=== PATIENT | male | born 1930 | race Caucasian/White ===

== ENCOUNTER 2018-05-15 19:30 | Outpatient (CLI) | payer MEDICARE | END 2018-05-15 19:31 | disposition home or self-care (01) | LOC: SLEEPLAB 19:30 | PROVIDERS: ATTEND Internal Medicine Sleep Medicine | DX: G47.33 Obstructive sleep apnea (adult) (pediatric) (principal) | CPT/HCPCS: 95811 ==

== ENCOUNTER 2019-05-15 04:10 | Emergency (ER) | payer MEDICARE ==
[2019-05-15] MEDS ORDERED: Ketorolac Tromethamine 30 MG/ML VIAL ONE (05:27)
--- NOTE | 2019-05-15 07:31 | RAD ---
Exam:2 views left forearm HISTORY: Pain. Trauma. COMPARISON: None FINDINGS: Impacted distal radius fracture. No additional fractures are appreciated. IMPRESSION: Distal radius fracture.
--- NOTE | 2019-05-15 07:33 | RAD ---
Exam:3 views left wrist HISTORY: Fall. Pain. COMPARISON: None FINDINGS: Intercarpal and radiocarpal joint spaces are preserved. Impacted distal radius fracture. As sociated soft tissue swelling. IMPRESSION: Distal radius fracture. Results of study discussed with Dr. Laguna 05/15/2019 at 7:30 AM Code CR
--- NOTE | 2019-05-15 07:33 | RAD ---
1 VIEW PELVIS: HISTORY: Fall. Pain. Trauma. FINDINGS: Limited evaluation of the sacrum due to bowel gas and fecal material. Intact bony pelvis. Contour of both femoral heads are maintained. Symmetric hip joint spaces. Bilateral obturator rings a re intact. Extensive atherosclerosis. Incompletely evaluated lumbar fusion hardware. IMPRESSION: No evidence of posttraumatic change. Transcribed Date/Time: 05/15/2019 7:36 AM
--- NOTE | 2019-05-15 07:35 | RAD ---
Exam: LUMBAR SPINE 3 VIEWS: HISTORY: Trauma. Fall. Pain. FINDINGS: 5 lumbar type vertebra. Bilateral transpedicular screws at L3, L4 and L5 without perihardware lucency. L4-L5 and L3-L4 disc prosthesis. Laminectomy defects from L3 through L5. Diffuse bone demineralization. No evidence of a vertebral body fracture. Extensive atherosclerosis of the aorta. Moderate to severe degenerative changes lumbosacral junction. Nonspecific calcification projecting over the left hemiabdomen.. IMPRESSION: No definite fracture. Transcribed Date/Time: 05/15/2019 7:37 AM
== END 2019-05-15 05:46 | disposition home or self-care (01) ==
LOC: ERS 04:10
DX: R11.2 Nausea with vomiting, unspecified (principal)
CPT/HCPCS: 72100; 72170; 96372; J1885

== ENCOUNTER 2019-05-16 12:37 | Observation (INO) | payer MEDICARE ==
[2019-05-16] MEDS ORDERED: Fentanyl 100 MCG/2 ML VIAL ONE ×2 (13:45→14:40)
--- NOTE | 2019-05-16 14:30 | CT ---
CT ABDOMEN AND PELVIS WITHOUT CONTRAST: HISTORY: Low back pain. FINDINGS: Comparison is made with the exam of 10/19/2015. Absence of oral and IV contrast reduces the sensitivity of the exam, particularly for evaluation of s olid organs involved. There are mild dependent changes in the lung bases. No free air or free fluid is noted in the abdome n or pelvis. No calcified gallstones are seen. Hyperdense cysts in the left kidney are again noted. No calculi are seen in the kidneys, ureters, or the urinary bladder. No hydroureteral nephrosis is seen on either side. The small bowel loops are not abnormally dilated. There are vascular calcific ations without evidence of aneurysmal dilatation of the abdominal aorta. There is colonic diverticul osis. There are postop changes of posterior spinal fusion with bilateral pedicle screws at L3, L4, a nd L5 levels in good position and alignment. The metallic hardware is intact. No acute fracture or subluxation is seen in the spine. Calcifications in the right adrenal gland and mild nodularity of t he left adrenal gland are stable. IMPRESSION: No significant abnormalities are seen within the constraints of a nonenhanced scan since 10/19/2015. POS: TPC
[2019-05-16 15:01] LABS: #Eosinphils 0.3 thou/uL (0.0-0.7); #Lymphocytes 1.2 thou/uL (1.20-3.40); #Monocytes 0.8 thou/uL (0.11-0.59); #Neutrophils 6.8 thou/uL (1.40-6.50); %Eosinophils 2.8 % (0.0-10.0); %Lymphocytes 13.5 % (21.0-51.0); %Monocytes 8.7 % (0.0-10.0); %Neutrophils 74.9 % (42.0-75.0); Hemoglobin 13.7 g/dL (14.0-18.0); Mean Corpuscular HGB CONC 34.1 g/dL (32.0-36.0); Mean Corpuscular Hemoglobin 33.4 pg (27.0-31.0); Mean Corpuscular Volume 97.9 fL (78.0-98.0); RBC Distribution Width 11.9 % (11.5-14.5); Red Blood Cell (RBC) Count 4.08 mill/uL (4.70-6.10)
[2019-05-16 15:07] LABS: Mean Platelet Volume 9.4 fL (7.4-10.4); Platelet Count 114 thou/uL (130-400)
[2019-05-16 15:19] LABS: Anion Gap 12 mmol/L (10-20); BUN (Urea Nitrogen) 23 mg/dL (8.4-25.7); Calc. Creatinine Clearance 0 mL/min (70-130); Calcium 8.6 mg/dL (7.8-10.44); Carbon Dioxide 22 mmol/L (23-31); Chloride 105 mmol/L (98-107); Estimated GFR-MDRD 79; Glucose 104 mg/dL (83-110); Platelet Morphology Comment Appears Decreased; Potassium 4.2 mmol/L (3.5-5.1); RBC Morphology Normal; Sodium 135 mmol/L (136-145)
[2019-05-16 16:51] LABS: Bilirubin Negative (Negative); Blood, Urine Negative (Negative); Clarity Clear (Clear); Glucose, Urine (Dipstick) Normal (Negative); Leukocyte Negative Leu/uL (Negative); Nitrite Negative (Negative); Protein, Urine (Dipstick) 10 mg/dL (Neg-Trace); Urobilinogen 3 mg/dL (Less than 2)
--- NOTE | 2019-05-16 21:05 | HP ---
PRIMARY CARE PHYSICIAN: Esvin Johnson MD CHIEF COMPLAINT: Back pain. HISTORY OF PRESENT ILLNESS: This is an 88-year-old white male who 2 days ago fell while he was trying to help his , who was starting to fall with her walker. He fell onto his buttocks and his left extended hand. The patient was seen in the emergency room at that time, was diagnosed with a nondisplaced left radial fracture, put in a splint, and that has not been causing any problems since. However, he has had increasing pain in his lower back. He was seen for this and was given muscle relaxants. These actually did not help the pain, but seemed to make it worse and made it difficult for him to sleep and he is now having trouble ambulating at all. He was able to carefully ambulate before that. He was seen again in the emergency room here, was unable to get up or walk and this was not safe to send home. They did do a CT scan of his abdomen and pelvis and his L-spine. There are no acute injuries, so we are putting him in observation so that we can go ahead and get him placed in rehab. PAST MEDICAL HISTORY: 1. Coronary artery disease. 2. Hypertension. 3. Hyperlipidemia. 4. Degenerative disease of the spine. 5. Parkinson disease. PAST SURGICAL HISTORY: 1. Cardiac stents x5. 2. Fusion of his L-spine. 3. Multiple skin cancer removals. SOCIAL HISTORY: The patient is , lives with his . He denies history of tobacco use. He rarely drinks any alcohol. No illicit drugs. He reports that he is a full code. His would be his medical decision maker if he is incapacitated, her name is Manuela Joseph. FAMILY HISTORY: Multiple uncles with Parkinson's. His dad had coronary artery disease and of an acute myocardial infarction. Mother in childbirth. ALLERGIES: 1. IODINE. 2. EPINEPHRINE. 3. HYDROCODONE. 4. PROPOXYPHENE. 5. TETANUS VACCINATION. 6. TRAMADOL. CURRENT MEDICATIONS: 1. Metoprolol 50 mg once a day. 2. Amlodipine 2.5 mg twice a day. 3. Lisinopril 40 mg daily. 4. Tamsulosin 0.4 mg daily at bedtime. 5. Finasteride 5 mg daily. 6. Coenzyme Q10 of 100 mg daily. 7. Alendronate 70 mg once a week. 8. Sinemet 25/100 mg 1-1/2 tablets three times a day. 9. Primidone 50 mg twice a day. 10. Aspirin 325 mg daily. 11. Simvastatin 40 mg daily. REVIEW OF SYSTEMS: CONSTITUTIONAL: No fever. No chills. EYES: No double vision or blurred vision. ENT: No congestion, drainage, or sore throat. CARDIOVASCULAR: No chest pain. No palpitations or racing heart. PULMONARY: No coughing, wheezing, or shortness of breath. GASTROINTESTINAL: No abdominal pain. No nausea or vomiting. No diarrhea or constipation. No fecal or urinary incontinence, or retention. GENITOURINARY: No dysuria or hematuria. MUSCULOSKELETAL: See HPI. SKIN: No rashes or lesions noted. NEUROLOGIC: The patient has intact feeling and he feels like he has intact strength into his legs. It just causes severe pain when he tries to get up. No neurologic symptoms that he has noticed. PSYCHIATRIC: He has not noticed any confusion or hallucinations, but did have some jitteriness and difficulty sleeping after taking the muscle relaxant, which is similar to what happened when he takes hydrocodone or tramadol. PHYSICAL EXAMINATION: VITAL SIGNS: Blood pressure 151/66, pulse 69, respirations 16, temperature 98.0, O2 saturation 100% on 2 L oxygen. GENERAL: This is a well-developed obese white male, in no acute distress when he is sitting still in the bed. HEENT: Pupils are equal, round, and reactive to light. Oropharynx clear without lesions, erythema, or exudate. NECK: Supple. No lymphadenopathy. No thyroid nodules or enlargement. HEART: Regular rate and rhythm. He does have a slight systolic murmur loudest at the left sternal border. No other murmurs or rubs. LUNGS: Clear to auscultation bilaterally. No wheezes, crackles, or rhonchi. ABDOMEN: Soft, nontender to palpation. Normoactive bowel sounds. No hepatosplenomegaly or other masses. EXTREMITIES: No clubbing, cyanosis, or edema. SKIN: No rashes or lesions noted. NEUROLOGIC: The patient has intact sensation throughout bilateral lower extremities. His reflexes are maintained and equal. He has good movement of all muscle groups in the toes, feet, ankles, and again moves well at the knees and at the hips. Flexing his hips does cause significant pain in his low back though. The remainder of his neurologic exam was normal. PSYCHIATRIC: Alert and oriented x3. Normal mood and affect. LABORATORY DATA: CBC showed hemoglobin of 13.7, hematocrit 40.0, and platelet count is a little low at 114. The rest was normal. Basic metabolic panel showed a sodium of 135 and a carbon dioxide of 22. Urinalysis was negative for evidence of infection. CT scan of the abdomen and pelvis including the bony structures, I did review along with the radiologist's report. He does show posterior spinal fusion with bilateral pedicle screws of the L3, L4, and L5 levels in good position and alignment with metallic hardware intact. No acute fractures or subluxation seen in the spine. No evidence of trauma. The remainder of the CT was negative for abnormalities. ASSESSMENT: 1. Severe low back pain from strain after a fall. The patient does not have any evidence of neurologic impingement. However, this is debilitating him where he cannot move and perform his activities of daily living. Currently, he will need physical therapy and placement in rehabilitation. Pain control will be an issue due to his allergies. It looks like in the past, he has been given Tylenol with Codeine while in the hospital. He does not remember ever having a reaction to this or we will give him that along with ibuprofen as needed for pain. We will hold off on muscle relaxers due to his bad reaction at home and we will have Physical Therapy start mobilizing him here in the hospital. 2. Hypertension. Resume home blood pressure medications. 3. Coronary artery disease. We will resume aspirin and statin. 4. Parkinson disease. Resume his home medications. 5. Gastrointestinal prophylaxis. Put the patient on Protonix while he is on the ibuprofen. 6. Deep venous thrombosis prophylaxis. We will put the patient on subcutaneous Lovenox and SCDs while in bed. 7. Code status: The patient is a full code. Should he be incapacitated, his would be his medical decision maker. Job ID: [id number]
[2019-05-16] MEDS ORDERED: Acetaminophen 650 MG Suppository PR PRN (23:03)
[2019-05-16] MEDS ORDERED: Acetaminophen 325 MG TAB PO PRN (23:03)
[2019-05-16] MEDS ORDERED: Senokot S 8.6-50 MG TAB PO PRN (23:03)
[2019-05-16] MEDS ORDERED: Guaifenesin DM 100-10/5 ML UDCUP PO PRN (23:03)
[2019-05-16] MEDS ORDERED: Ibuprofen 600 MG TAB PO PRN (23:03)
[2019-05-16] MEDS ORDERED: Ondansetron PF 4 MG/2 ML Vial IVP PRN (23:03)
[2019-05-16] MEDS ORDERED: Ondansetron ODT 4 MG TAB PO PRN (23:03)
[2019-05-16] MEDS ORDERED: Tamsulosin HCl 0.4 MG CAP PO SCH (23:15)
[2019-05-16] MEDS ORDERED: Aspirin 325 MG TAB PO SCH (23:15)
[2019-05-16] MEDS ORDERED: Primidone 50 MG TAB PO SCH (23:15)
[2019-05-16] MEDS ORDERED: Amlodipine 5 MG TAB PO SCH (23:15)
[2019-05-16 23:29] VITALS: BMI 28.6
[2019-05-17 05:29] LABS: #Eosinphils 0.3 thou/uL (0.0-0.7); #Monocytes 0.6 thou/uL (0.11-0.59); #Neutrophils 4.6 thou/uL (1.40-6.50); %Basophils 0.4 % (0.0-1.0); %Lymphocytes 15.7 % (21.0-51.0); %Monocytes 8.8 % (0.0-10.0); %Neutrophils 70.2 % (42.0-75.0); Hemoglobin 12.7 g/dL (14.0-18.0); Mean Corpuscular HGB CONC 34.5 g/dL (32.0-36.0); Mean Corpuscular Hemoglobin 33.4 pg (27.0-31.0); Mean Platelet Volume 8.1 fL (7.4-10.4); Platelet Count 100 thou/uL (130-400); RBC Distribution Width 11.6 % (11.5-14.5); Red Blood Cell (RBC) Count 3.79 mill/uL (4.70-6.10); White Blood Cell (WBC) Count 6.6 thou/uL (4.8-10.8)
[2019-05-17 05:51] LABS: Anion Gap 11 mmol/L (10-20); BUN (Urea Nitrogen) 17 mg/dL (8.4-25.7); Calc. Creatinine Clearance 101 mL/min (70-130); Carbon Dioxide 23 mmol/L (23-31); Chloride 105 mmol/L (98-107); Estimated GFR-MDRD Greater than 90; Glucose 107 mg/dL (83-110); Potassium 3.9 mmol/L (3.5-5.1); Sodium 135 mmol/L (136-145)
[2019-05-17] MEDS: Aspirin 325 MG TAB PO SCH ×2 (08:34→19:58)
[2019-05-17] MEDS: Amlodipine 5 MG TAB PO SCH ×2 (08:35→19:59)
[2019-05-17] MEDS: Finasteride 5 MG TAB PO SCH (08:35)
[2019-05-17] MEDS: Primidone 50 MG TAB PO SCH ×2 (08:35→19:58)
[2019-05-17] MEDS: Lisinopril 20 MG TAB PO SCH (08:36)
[2019-05-17] MEDS: Enoxaparin Sodium 40 MG/0.4 ML SYRINGE SC SCH (08:36)
[2019-05-17] MEDS: Ubidecarenone 50 MG CAP PO SCH (08:37)
[2019-05-17] MEDS: Lidocaine 5% Patch TD SCH (08:43)
[2019-05-17] MEDS ORDERED: clonazePAM 0.5 MG TAB PO PRN (12:48)
--- NOTE | 2019-05-17 12:55 | PDOC.HOSPP ---
- Subjective Encounter Date: 05/17/19 (f/u back pain) Encounter Time: 12:53 Subjective: Pt reports no pain at rest, but 10/10 pain with movement. He denies cp/sob/n/v/ abd pain. He states his last BM was 3 days ago and at home uses a suppository prn in addition to scheduled stool softener. - Objective Vital Signs & Weight: Vital Signs (12 hours) Temp Pulse Resp BP BP Pulse Ox 05/17/19 11:00 98.5 F 70 20 127/70 94 L 05/17/19 08:36 164/76 H 05/17/19 08:35 71 164/76 H 05/17/19 07:29 98.5 F 71 20 164/76 H 92 L 05/17/19 04:43 98.6 F 79 18 135/70 93 L Weight Weight 223 lb 4.8 oz I&O: 05/16/19 05/17/19 05/18/19 06:59 06:59 06:59 Output Total 350 Balance -350 Result Diagrams: 05/17/19 05:10 05/17/19 05:10 Hospitalist ROS - Medication Medications: Active Medications Generic Name Dose Route Start Last Admin Trade Name Freq PRN Reason Stop Dose Admin Amlodipine Besylate 2.5 mg 05/17/19 09:00 05/17/19 08:35 Norvasc PO 2.5 mg BID ZAYDA Administration Aspirin 325 mg 05/17/19 09:00 05/17/19 08:34 Aspirin PO 325 mg BID ZAYDA Administration Coenzyme Q10 100 mg 05/17/19 09:00 05/17/19 08:37 Coenzyme Q10 PO 100 mg DAILY ZAYDA Administration Enoxaparin Sodium 40 mg 05/17/19 09:00 05/17/19 08:36 Lovenox SC 40 mg 0900 ZAYDA Administration Finasteride 5 mg 05/17/19 09:00 05/17/19 08:35 Proscar PO 5 mg DAILY ZAYDA Administration Lidocaine 2 patch 05/17/19 09:00 05/17/19 08:43 Lidoderm 5% Patch TD 2 patch DAILY ZAYDA Administration Lisinopril 40 mg 05/17/19 09:00 05/17/19 08:36 Zestril PO 40 mg QAM ZAYDA Administration Metoprolol Succinate 50 mg 05/17/19 09:00 05/17/19 08:36 Toprol Xl PO 50 mg DAILY ZAYDA Administration Pantoprazole Sodium 40 mg 05/17/19 09:00 05/17/19 08:36 Protonix PO 40 mg DAILY ZAYDA Administration Primidone 50 mg 05/17/19 09:00 05/17/19 08:35 Mysoline PO 50 mg BID ZAYDA Administration - Exam General Appearance: NAD Heart: RRR, no murmur Respiratory: CTAB, no wheezes, no rales, no ronchi Gastrointestinal: soft, non-tender, non-distended, normal bowel sounds Extremities: no cyanosis, no clubbing, no edema Extremities - other findings: splint on left arm Psychiatric: normal affect Hosp A/P (1) Low back pain Code(s): M54.5 - LOW BACK PAIN Status: Acute Qualifiers: Chronicity: acute Sciatica presence: unspecified whether sciatica present (2) Radial fracture Code(s): S52.90XA - UNSP FRACTURE OF UNSP FOREARM, INIT FOR CLOS FX Status: Acute Qualifiers: Encounter type: subsequent encounter Fracture type: closed Laterality: left (3) Dyslipidemia Code(s): E78.5 - HYPERLIPIDEMIA, UNSPECIFIED Status: Acute (4) CAD (coronary artery disease) Code(s): I25.10 - ATHSCL HEART DISEASE OF [place] CORONARY ARTERY W/O ANG PCTRS Status: Chronic (5) HTN (hypertension) Code(s): I10 - ESSENTIAL (PRIMARY) HYPERTENSION Status: Chronic (6) Parkinsons disease Code(s): G20 - PARKINSON'S DISEASE Status: Chronic - Plan Reviewed and reconcilled home meds - added bid colace, prn lactulose and dulcolax CO Continue current home meds Tx pain, PT/OT evaluation and tx, plan for SNF dvt prophy - lovenox and scd's gi prophy - not indicated code status - Full, pt does not desire prolonged measures or prolonged life support, but requests initial tx and life support to see if the situation resolves. Family friend in the room during this discussion.
[2019-05-17] MEDS: Acetaminophen/Codeine 30-300mg Tablet PO PRN ×2 (14:45→19:58)
[2019-05-17] MEDS: Docusate 100 MG CAP PO SCH (19:58)
[2019-05-17] MEDS: Tamsulosin HCl 0.4 MG CAP PO SCH (19:58)
[2019-05-17] MEDS: Atorvastatin Calcium 20 MG TAB PO SCH (19:59)
[2019-05-17] MEDS: Lidocaine Patch Removal 1 EACH TOP SCH (19:59)
[2019-05-18 07:10] LABS: #Basophils 0.1 thou/uL (0.0-0.2); #Eosinphils 0.4 thou/uL (0.0-0.7); #Lymphocytes 0.7 thou/uL (1.20-3.40); #Monocytes 0.5 thou/uL (0.11-0.59); #Neutrophils 4.3 thou/uL (1.40-6.50); %Basophils 0.9 % (0.0-1.0); %Lymphocytes 11.5 % (21.0-51.0); %Monocytes 9.1 % (0.0-10.0); %Neutrophils 72.5 % (42.0-75.0); Mean Corpuscular HGB CONC 33.4 g/dL (32.0-36.0); Mean Corpuscular Hemoglobin 32.6 pg (27.0-31.0); Mean Corpuscular Volume 97.6 fL (78.0-98.0); Mean Platelet Volume 8.3 fL (7.4-10.4); Platelet Count 117 thou/uL (130-400); RBC Distribution Width 11.7 % (11.5-14.5); Red Blood Cell (RBC) Count 3.99 mill/uL (4.70-6.10); White Blood Cell (WBC) Count 5.9 thou/uL (4.8-10.8)
[2019-05-18 07:27] LABS: Anion Gap 13 mmol/L (10-20); BUN (Urea Nitrogen) 12 mg/dL (8.4-25.7); Calc. Creatinine Clearance 103 mL/min (70-130); Calcium 7.9 mg/dL (7.8-10.44); Carbon Dioxide 22 mmol/L (23-31); Chloride 101 mmol/L (98-107); Estimated GFR-MDRD Greater than 90; Glucose 111 mg/dL (83-110); Potassium 3.7 mmol/L (3.5-5.1); Sodium 132 mmol/L (136-145)
[2019-05-18] MEDS: Ubidecarenone 50 MG CAP PO SCH (08:01)
[2019-05-18] MEDS: Aspirin 325 MG TAB PO SCH ×2 (08:02→20:27)
[2019-05-18] MEDS: Amlodipine 5 MG TAB PO SCH ×2 (08:02→20:28)
[2019-05-18] MEDS: Primidone 50 MG TAB PO SCH ×2 (08:02→20:37)
[2019-05-18] MEDS: Docusate 100 MG CAP PO SCH ×2 (08:03→20:28)
[2019-05-18] MEDS: Lisinopril 20 MG TAB PO SCH (08:03)
[2019-05-18] MEDS: Finasteride 5 MG TAB PO SCH (08:03)
[2019-05-18] MEDS: Enoxaparin Sodium 40 MG/0.4 ML SYRINGE SC SCH (08:03)
[2019-05-18] MEDS: Lidocaine 5% Patch TD SCH (08:10)
[2019-05-18] MEDS ORDERED: Carbidopa/Levodopa CR 50-200 mg Tablet PO SCH (10:45)
[2019-05-18] MEDS: Acetaminophen/Codeine 30-300mg Tablet PO PRN ×2 (10:55→14:30)
--- NOTE | 2019-05-18 13:48 | PDOC.HOSPP ---
- Subjective Encounter Date: 05/18/19 (f/u back pain) Encounter Time: 13:46 Subjective: Pt c/o pain with movement or coughing in low back. Also c/o pain in right leg that is new today. Denies any cp/sob/n/v/abd pain. no BM recently - Objective Vital Signs & Weight: Vital Signs (12 hours) Temp Pulse Resp BP BP BP Pulse Ox 05/18/19 11:25 98.2 F 63 20 154/72 H 95 05/18/19 08:03 139/62 05/18/19 08:02 67 139/62 05/18/19 07:46 98.0 F 67 22 H 139/62 95 05/18/19 04:33 98.0 F 73 20 160/87 H 95 05/18/19 03:56 98 Weight Weight 223 lb 4.8 oz I&O: 05/17/19 05/18/19 05/19/19 06:59 06:59 06:59 Intake Total 720 Output Total 350 1020 Balance -350 -300 Result Diagrams: 05/18/19 06:55 05/18/19 06:55 Hospitalist ROS - Medication Medications: Active Medications Generic Name Dose Route Start Last Admin Trade Name Freq PRN Reason Stop Dose Admin Acetaminophen/Codeine Phosphate 1 tab 05/16/19 23:03 05/18/19 10:55 Tylenol #3 PO 1 tab Q4H PRN Administration Moderate Pain (4-6) Acetaminophen/Codeine Phosphate 2 tab 05/16/19 23:03 05/17/19 14:45 Tylenol #3 PO 2 tab Q4H PRN Administration Severe Pain (7-10) Amlodipine Besylate 2.5 mg 05/17/19 09:00 05/18/19 08:02 Norvasc PO 2.5 mg BID ZAYDA Administration Aspirin 325 mg 05/17/19 09:00 05/18/19 08:02 Aspirin PO 325 mg BID ZAYDA Administration Atorvastatin Calcium 20 mg 05/17/19 21:00 05/17/19 19:59 Lipitor PO 20 mg HS ZAYDA Administration Coenzyme Q10 100 mg 05/17/19 09:00 05/18/19 08:01 Coenzyme Q10 PO 100 mg DAILY ZAYDA Administration Docusate Sodium 100 mg 05/17/19 21:00 05/18/19 08:03 Colace PO 100 mg BID ZAYDA Administration Enoxaparin Sodium 40 mg 05/17/19 09:00 05/18/19 08:03 Lovenox SC 40 mg 0900 ZAYDA Administration Finasteride 5 mg 05/17/19 09:00 05/18/19 08:03 Proscar PO 5 mg DAILY ZAYDA Administration Lactulose 20 gm 05/17/19 12:49 05/18/19 08:01 Lactulose PO 20 gm DAILYPRN PRN Administration Constipation Lidocaine 2 patch 05/17/19 09:00 05/18/19 08:10 Lidoderm 5% Patch TD 2 patch DAILY ZAYDA Administration Lisinopril 40 mg 05/17/19 09:00 05/18/19 08:03 Zestril PO 40 mg QAM ZAYDA Administration Metoprolol Succinate 50 mg 05/17/19 09:00 05/18/19 08:02 Toprol Xl PO 50 mg DAILY ZAYDA Administration Miscellaneous Medication 2 each 05/17/19 21:00 05/17/19 19:59 Lidocaine Patch Removal TOP 2 each 2100 ZAYDA Administration Primidone 50 mg 05/17/19 09:00 05/18/19 08:02 Mysoline PO 50 mg BID ZAYDA Administration Tamsulosin HCl 0.4 mg 05/17/19 21:00 05/17/19 19:58 Flomax PO 0.4 mg HS ZAYDA Administration - Exam General Appearance: NAD Heart: RRR, no murmur Respiratory: CTAB, no wheezes, no rales, no ronchi Gastrointestinal: soft, non-tender, non-distended, normal bowel sounds Extremities: no cyanosis, no clubbing, no edema Psychiatric: normal affect Hosp A/P (1) Low back pain Code(s): M54.5 - LOW BACK PAIN Status: Acute Qualifiers: Chronicity: acute Sciatica presence: unspecified whether sciatica present (2) Radial fracture Code(s): S52.90XA - UNSP FRACTURE OF UNSP FOREARM, INIT FOR CLOS FX Status: Acute Qualifiers: Encounter type: subsequent encounter Fracture type: closed Laterality: left (3) Dyslipidemia Code(s): E78.5 - HYPERLIPIDEMIA, UNSPECIFIED Status: Acute (4) CAD (coronary artery disease) Code(s): I25.10 - ATHSCL HEART DISEASE OF [place] CORONARY ARTERY W/O ANG PCTRS Status: Chronic (5) HTN (hypertension) Code(s): I10 - ESSENTIAL (PRIMARY) HYPERTENSION Status: Chronic (6) Parkinsons disease Code(s): G20 - PARKINSON'S DISEASE Status: Chronic - Plan Reviewed and reconcilled home meds yesterday - continue current orders Pain - on lidocaine patch - tylenol 3 prn - add gabapentin HS starting with low dose - Has back hardware from prior surgery - do not think he is a candidate for MRI. No fracture on plain xray and CT abd/pelvis - continue PT/OT Plan for SNF Constipation - continue colace (home med), add miralax, and continue prn lactulose For distal radius fracture - can change to wrist immobilizer as this is a non- displaced fx. Reviewed with Ortho by phone and this does not require surgery. Needs outpatient f/u in [address] request for this - as this will be more comfortable for patient. Hyponatremia - hx of this in the past. Liberalize diet. Reviewed meds - do not see any that would cause this. Will continue to monitor. dvt prophy - lovenox and scd's gi prophy - not indicated code status - Full, pt does not desire prolonged measures or prolonged life support, but requests initial tx and life support to see if the situation resolves. Reviewed yesterday Reviewed plan of care with patient and family in the room. No questions or further needs at end of eval.
[2019-05-18] MEDS: Polyethylene Glycol 3350 17 GM Packet PO SCH (14:19)
[2019-05-18] MEDS: Carbidopa/Levodopa CR 50-200 mg Tablet PO SCH ×2 (14:19→20:32)
[2019-05-18] MEDS: Tamsulosin HCl 0.4 MG CAP PO SCH (20:27)
[2019-05-18] MEDS: Atorvastatin Calcium 20 MG TAB PO SCH (20:27)
[2019-05-18] MEDS: Gabapentin 100 MG CAP PO SCH (20:28)
[2019-05-18] MEDS: Lidocaine Patch Removal 1 EACH TOP SCH (20:35)
[2019-05-19 05:33] LABS: Anion Gap 10 mmol/L (10-20); BUN (Urea Nitrogen) 14 mg/dL (8.4-25.7); Calc. Creatinine Clearance 103 mL/min (70-130); Carbon Dioxide 25 mmol/L (23-31); Chloride 100 mmol/L (98-107); Estimated GFR-MDRD Greater than 90; Glucose 98 mg/dL (83-110); Potassium 3.9 mmol/L (3.5-5.1); Sodium 131 mmol/L (136-145)
[2019-05-19] MEDS: Lisinopril 20 MG TAB PO SCH (08:13)
[2019-05-19] MEDS: Enoxaparin Sodium 40 MG/0.4 ML SYRINGE SC SCH (08:13)
[2019-05-19] MEDS: Finasteride 5 MG TAB PO SCH (08:14)
[2019-05-19] MEDS: Acetaminophen/Codeine 30-300mg Tablet PO PRN ×2 (08:14→19:29)
[2019-05-19] MEDS: Carbidopa/Levodopa CR 50-200 mg Tablet PO SCH ×3 (08:14→19:28)
[2019-05-19] MEDS: Docusate 100 MG CAP PO SCH ×2 (08:14→19:28)
[2019-05-19] MEDS: Amlodipine 5 MG TAB PO SCH ×2 (08:14→19:27)
[2019-05-19] MEDS: Aspirin 325 MG TAB PO SCH ×2 (08:14→19:28)
[2019-05-19] MEDS: Primidone 50 MG TAB PO SCH ×2 (08:16→19:29)
[2019-05-19] MEDS: Ubidecarenone 50 MG CAP PO SCH (08:16)
[2019-05-19] MEDS: Lidocaine 5% Patch TD SCH (09:52)
--- NOTE | 2019-05-19 12:15 | PDOC.HOSPP ---
- Subjective Encounter Date: 05/19/19 (f/u back pain) Encounter Time: 12:13 Subjective: Pt reports improvement in pain control today. Was able to walk with PT yesterday/walker. Had a BM yesterday that was normal. Denies any n/v/abd pain or any new concerns. - Objective Vital Signs & Weight: Vital Signs (12 hours) Temp Pulse Resp BP BP BP Pulse Ox 05/19/19 11:25 98.6 F 66 20 137/74 94 L 05/19/19 08:14 63 05/19/19 08:13 137/77 05/19/19 07:51 98.6 F 63 20 137/77 98 05/19/19 03:56 98.4 F 66 18 152/77 H 94 L Weight Weight 223 lb 4.8 oz I&O: 05/18/19 05/19/19 05/20/19 06:59 06:59 06:59 Intake Total 720 1350 Output Total 1020 2210 Balance -300 -860 Result Diagrams: 05/18/19 06:55 05/19/19 04:47 Hospitalist ROS - Medication Medications: Active Medications Generic Name Dose Route Start Last Admin Trade Name Freq PRN Reason Stop Dose Admin Acetaminophen/Codeine Phosphate 1 tab 05/16/19 23:03 05/18/19 10:55 Tylenol #3 PO 1 tab Q4H PRN Administration Moderate Pain (4-6) Acetaminophen/Codeine Phosphate 2 tab 05/16/19 23:03 05/19/19 08:14 Tylenol #3 PO 2 tab Q4H PRN Administration Severe Pain (7-10) Amlodipine Besylate 2.5 mg 05/17/19 09:00 05/19/19 08:14 Norvasc PO 2.5 mg BID ZAYDA Administration Aspirin 325 mg 05/17/19 09:00 05/19/19 08:14 Aspirin PO 325 mg BID ZAYDA Administration Atorvastatin Calcium 20 mg 05/17/19 21:00 05/18/19 20:27 Lipitor PO 20 mg HS ZAYDA Administration Carbidopa/Levodopa 0.75 tab 05/18/19 15:00 05/19/19 08:14 Sinemet Cr 50/200 PO 0.75 tab TID ZAYDA Administration Coenzyme Q10 100 mg 05/17/19 09:00 05/19/19 08:16 Coenzyme Q10 PO 100 mg DAILY ZAYDA Administration Docusate Sodium 100 mg 05/17/19 21:00 05/19/19 08:14 Colace PO 100 mg BID ZAYDA Administration Enoxaparin Sodium 40 mg 05/17/19 09:00 05/19/19 08:13 Lovenox SC 40 mg 0900 ZAYDA Administration Finasteride 5 mg 05/17/19 09:00 05/19/19 08:14 Proscar PO 5 mg DAILY ZAYDA Administration Gabapentin 100 mg 05/18/19 21:00 05/18/19 20:28 Neurontin PO 100 mg HS ZAYDA Administration Lactulose 20 gm 05/17/19 12:49 05/18/19 08:01 Lactulose PO 20 gm DAILYPRN PRN Administration Constipation Lidocaine 2 patch 05/17/19 09:00 05/19/19 09:52 Lidoderm 5% Patch TD 2 patch DAILY ZAYDA Administration Lisinopril 40 mg 05/17/19 09:00 05/19/19 08:13 Zestril PO 40 mg QAM ZAYDA Administration Metoprolol Succinate 50 mg 05/17/19 09:00 05/19/19 08:13 Toprol Xl PO 50 mg DAILY ZAYDA Administration Miscellaneous Medication 2 each 05/17/19 21:00 05/18/19 20:35 Lidocaine Patch Removal TOP Not Given 2100 ZAYDA Polyethylene Glycol 17 gm 05/18/19 14:00 05/18/19 14:19 Miralax PO 17 gm 1400 ZAYDA Administration Primidone 50 mg 05/17/19 09:00 05/19/19 08:16 Mysoline PO 50 mg BID ZAYDA Administration Tamsulosin HCl 0.4 mg 05/17/19 21:00 05/18/19 20:27 Flomax PO 0.4 mg HS ZAYDA Administration - Exam General Appearance: NAD Heart: RRR, no murmur Respiratory: CTAB, no wheezes, no rales, no ronchi Gastrointestinal: soft, non-tender, non-distended, normal bowel sounds Extremities: no cyanosis, no clubbing, no edema Psychiatric: normal affect Hosp A/P (1) Low back pain Code(s): M54.5 - LOW BACK PAIN Status: Acute Qualifiers: Chronicity: acute Sciatica presence: unspecified whether sciatica present (2) Radial fracture Code(s): S52.90XA - UNSP FRACTURE OF UNSP FOREARM, INIT FOR CLOS FX Status: Acute Qualifiers: Encounter type: subsequent encounter Fracture type: closed Laterality: left (3) Dyslipidemia Code(s): E78.5 - HYPERLIPIDEMIA, UNSPECIFIED Status: Acute (4) CAD (coronary artery disease) Code(s): I25.10 - ATHSCL HEART DISEASE OF [place] CORONARY ARTERY W/O ANG PCTRS Status: Chronic (5) HTN (hypertension) Code(s): I10 - ESSENTIAL (PRIMARY) HYPERTENSION Status: Chronic (6) Parkinsons disease Code(s): G20 - PARKINSON'S DISEASE Status: Chronic - Plan Pain - on lidocaine patch - tylenol 3 prn - added gabapentin at low dose last night - will continue - Has back hardware from prior surgery - do not think he is a candidate for MRI. No fracture on plain xray and CT abd/pelvis - continue PT/OT Plan for SNF - pt is ready when approved Constipation - resolved - continue scheduled colace, miralax and prn meds For distal radius fracture - wrist immobilizer, no surgery indicated per discussion with Ortho. Needs f/u in 2 weeks with Ortho to monitor healing. Hyponatremia - sodium slightly worse, diet liberalize, continue to monitor. dvt prophy - lovenox and scd's gi prophy - not indicated code status - Full, pt does not desire prolonged measures or prolonged life support, but requests initial tx and life support to see if the situation resolves. Reviewed yesterday Reviewed plan of care with patient. No questions or further needs at end of eval.
[2019-05-19] MEDS: Polyethylene Glycol 3350 17 GM Packet PO SCH (15:11)
[2019-05-19] MEDS: Gabapentin 100 MG CAP PO SCH (19:28)
[2019-05-19] MEDS: Atorvastatin Calcium 20 MG TAB PO SCH (19:28)
[2019-05-19] MEDS: Tamsulosin HCl 0.4 MG CAP PO SCH (19:29)
[2019-05-19] MEDS: Lidocaine Patch Removal 1 EACH TOP SCH (19:30)
[2019-05-20 05:55] LABS: Anion Gap 11 mmol/L (10-20); BUN (Urea Nitrogen) 13 mg/dL (8.4-25.7); Calc. Creatinine Clearance 101 mL/min (70-130); Calcium 8.2 mg/dL (7.8-10.44); Carbon Dioxide 23 mmol/L (23-31); Chloride 99 mmol/L (98-107); Estimated GFR-MDRD Greater than 90; Glucose 94 mg/dL (83-110); Potassium 4.1 mmol/L (3.5-5.1); Sodium 129 mmol/L (136-145)
[2019-05-20] MEDS ORDERED: Alendronate Sodium 70 mg Tablet PO SCH (06:00)
[2019-05-20] MEDS: Aspirin 325 MG TAB PO SCH ×2 (08:04→20:15)
[2019-05-20] MEDS: Amlodipine 5 MG TAB PO SCH ×2 (08:04→20:17)
[2019-05-20] MEDS: Ubidecarenone 50 MG CAP PO SCH (08:04)
[2019-05-20] MEDS: Primidone 50 MG TAB PO SCH ×2 (08:04→20:14)
[2019-05-20] MEDS: Lisinopril 20 MG TAB PO SCH (08:05)
[2019-05-20] MEDS: Carbidopa/Levodopa CR 50-200 mg Tablet PO SCH ×3 (08:05→20:15)
[2019-05-20] MEDS: Finasteride 5 MG TAB PO SCH (08:05)
[2019-05-20] MEDS: Docusate 100 MG CAP PO SCH ×2 (08:05→20:16)
[2019-05-20] MEDS: Enoxaparin Sodium 40 MG/0.4 ML SYRINGE SC SCH (08:06)
[2019-05-20] MEDS: Lidocaine 5% Patch TD SCH (08:13)
--- NOTE | 2019-05-20 10:31 | PDOC.HOSPP ---
- Subjective Encounter Date: 05/20/19 Encounter Time: 11:00 Subjective: Patient reports continued hip pain, improving, not hurting at rest but does whenever moves. Getting up with PT ok. Awaiting rehab/SNF placement - Objective Vital Signs & Weight: Vital Signs (12 hours) Temp Pulse Resp BP BP Pulse Ox 05/20/19 08:05 165/79 H 05/20/19 08:04 68 165/79 H 05/20/19 07:33 97.9 F 68 20 165/79 H 93 L 05/20/19 04:37 98.4 F 61 15 154/72 H 94 L Weight Weight 223 lb 4.8 oz I&O: 05/19/19 05/20/19 05/21/19 06:59 06:59 06:59 Intake Total 1350 1940 Output Total 0 2019 Balance -860 -80 Result Diagrams: 05/18/19 06:55 05/20/19 04:57 Hospitalist ROS - Review of Systems Constitutional: denies: fever, chills Respiratory: denies: cough, shortness of breath Cardiovascular: denies: chest pain, palpitations Gastrointestinal: reports: constipation. denies: nausea, vomiting, abdominal pain, diarrhea Genitourinary: denies: dysuria, hematuria Musculoskeletal: reports: back pain, leg pain - Medication Medications: Active Medications Generic Name Dose Route Start Last Admin Trade Name Freq PRN Reason Stop Dose Admin Acetaminophen/Codeine Phosphate 1 tab 05/16/19 23:03 05/18/19 10:55 Tylenol #3 PO 1 tab Q4H PRN Administration Moderate Pain (4-6) Acetaminophen/Codeine Phosphate 2 tab 05/16/19 23:03 05/19/19 19:29 Tylenol #3 PO 2 tab Q4H PRN Administration Severe Pain (7-10) Amlodipine Besylate 2.5 mg 05/17/19 09:00 05/20/19 08:04 Norvasc PO 2.5 mg BID ZAYDA Administration Aspirin 325 mg 05/17/19 09:00 05/20/19 08:04 Aspirin PO 325 mg BID ZAYDA Administration Atorvastatin Calcium 20 mg 05/17/19 21:00 05/19/19 19:28 Lipitor PO 20 mg HS ZAYDA Administration Carbidopa/Levodopa 0.75 tab 05/18/19 15:00 05/20/19 08:05 Sinemet Cr 50/200 PO 0.75 tab TID ZAYDA Administration Coenzyme Q10 100 mg 05/17/19 09:00 05/20/19 08:04 Coenzyme Q10 PO 100 mg DAILY ZAYDA Administration Docusate Sodium 100 mg 05/17/19 21:00 05/20/19 08:05 Colace PO 100 mg BID ZAYDA Administration Enoxaparin Sodium 40 mg 05/17/19 09:00 05/20/19 08:06 Lovenox SC 40 mg 0900 ZAYDA Administration Finasteride 5 mg 05/17/19 09:00 05/20/19 08:05 Proscar PO 5 mg DAILY ZAYDA Administration Gabapentin 100 mg 05/18/19 21:00 05/19/19 19:28 Neurontin PO 100 mg HS ZAYDA Administration Lactulose 20 gm 05/17/19 12:49 05/20/19 06:05 Lactulose PO 20 gm DAILYPRN PRN Administration Constipation Lidocaine 2 patch 05/17/19 09:00 05/20/19 08:13 Lidoderm 5% Patch TD 2 patch DAILY ZAYDA Administration Lisinopril 40 mg 05/17/19 09:00 05/20/19 08:05 Zestril PO 40 mg QAM ZAYDA Administration Metoprolol Succinate 50 mg 05/17/19 09:00 05/20/19 08:05 Toprol Xl PO 50 mg DAILY ZAYDA Administration Miscellaneous Medication 2 each 05/17/19 21:00 05/19/19 19:30 Lidocaine Patch Removal TOP Not Given 2100 ZAYDA Polyethylene Glycol 17 gm 05/18/19 14:00 05/19/19 15:11 Miralax PO 17 gm 1400 ZAYDA Administration Primidone 50 mg 05/17/19 09:00 05/20/19 08:04 Mysoline PO 50 mg BID ZAYDA Administration Tamsulosin HCl 0.4 mg 05/17/19 21:00 05/19/19 19:29 Flomax PO 0.4 mg HS ZAYDA Administration - Exam General Appearance: NAD, awake alert Heart: RRR, no murmur, no gallops, no rubs Respiratory: CTAB, no wheezes, no rales, no ronchi Gastrointestinal: soft, non-tender, non-distended, normal bowel sounds Extremities: no cyanosis, no clubbing, no edema Psychiatric: normal affect, normal behavior, A&O x 3 Hosp A/P (1) Low back pain Code(s): M54.5 - LOW BACK PAIN Status: Acute Qualifiers: Chronicity: acute Sciatica presence: unspecified whether sciatica present (2) Radial fracture Code(s): S52.90XA - UNSP FRACTURE OF UNSP FOREARM, INIT FOR CLOS FX Status: Acute Qualifiers: Encounter type: subsequent encounter Fracture type: closed Laterality: left (3) Dyslipidemia Code(s): E78.5 - HYPERLIPIDEMIA, UNSPECIFIED Status: Acute (4) BPH (benign prostatic hyperplasia) Code(s): N40.0 - BENIGN PROSTATIC HYPERPLASIA WITHOUT LOWER URINRY TRACT SYMP Status: Chronic (5) CAD (coronary artery disease) Code(s): I25.10 - ATHSCL HEART DISEASE OF [place] CORONARY ARTERY W/O ANG PCTRS Status: Chronic (6) HTN (hypertension) Code(s): I10 - ESSENTIAL (PRIMARY) HYPERTENSION Status: Chronic (7) Parkinsons disease Code(s): G20 - PARKINSON'S DISEASE Status: Chronic (8) Hyponatremia Code(s): E87.1 - HYPO-OSMOLALITY AND HYPONATREMIA Status: Acute Plan: uncertain source - Plan Pain - on lidocaine patch - tylenol 3 prn - added gabapentin at low dose - Has back hardware from prior surgery - do not think he is a candidate for MRI. No fracture on plain xray and CT abd/pelvis - continue PT/OT Plan for SNF - pt is ready when approved Constipation - resolved - continue scheduled colace, miralax and prn meds For distal radius fracture - wrist immobilizer, no surgery indicated per discussion with Ortho. Needs f/u in 2 weeks with Ortho to monitor healing. Hyponatremia - sodium slightly worse, diet liberalized, BP up, will try restricting fluids. dvt prophy - lovenox and scd's gi prophy - not indicated code status - Full, pt does not desire prolonged measures or prolonged life support, but requests initial tx and life support to see if the situation resolves.
[2019-05-20] MEDS: Polyethylene Glycol 3350 17 GM Packet PO SCH (14:11)
[2019-05-20] MEDS ORDERED: Senokot 8.6 MG TAB PO PRN (14:57)
[2019-05-20] MEDS: Tamsulosin HCl 0.4 MG CAP PO SCH (20:15)
[2019-05-20] MEDS: Gabapentin 100 MG CAP PO SCH (20:15)
[2019-05-20] MEDS: Atorvastatin Calcium 20 MG TAB PO SCH (20:16)
[2019-05-20] MEDS: Lidocaine Patch Removal 1 EACH TOP SCH (20:33)
--- NOTE | 2019-05-21 08:41 | PDOC.HOSPP ---
- Subjective Encounter Date: 05/21/19 Encounter Time: 11:30 Subjective: Patient ambulating better with PT. Pain improving. Awaiting insurance authorization to go to SNF. - Objective Vital Signs & Weight: Vital Signs (12 hours) Temp Pulse Resp BP BP Pulse Ox 05/21/19 07:17 97.6 F 74 17 138/74 95 05/21/19 05:20 97.4 F L 67 18 121/68 98 05/21/19 00:49 127/75 05/21/19 00:08 98.3 F 68 18 166/80 H 93 L Weight Weight 223 lb 4.8 oz I&O: 05/20/19 05/21/19 05/22/19 06:59 06:59 06:59 Intake Total 1939 1500 Output Total 2019 1049 Balance -80 450 Result Diagrams: 05/18/19 06:55 05/20/19 04:57 Hospitalist ROS - Review of Systems Constitutional: denies: fever, chills Respiratory: denies: cough, shortness of breath Cardiovascular: denies: chest pain, palpitations, orthopnea Gastrointestinal: denies: nausea, vomiting, abdominal pain, diarrhea, constipation Genitourinary: denies: dysuria, hematuria Musculoskeletal: reports: back pain - Medication Medications: Active Medications Generic Name Dose Route Start Last Admin Trade Name Freq PRN Reason Stop Dose Admin Acetaminophen/Codeine Phosphate 1 tab 05/16/19 23:03 05/18/19 10:55 Tylenol #3 PO 1 tab Q4H PRN Administration Moderate Pain (4-6) Acetaminophen/Codeine Phosphate 2 tab 05/16/19 23:03 05/19/19 19:29 Tylenol #3 PO 2 tab Q4H PRN Administration Severe Pain (7-10) Amlodipine Besylate 2.5 mg 05/17/19 09:00 05/20/19 20:17 Norvasc PO 2.5 mg BID ZAYDA Administration Aspirin 325 mg 05/17/19 09:00 05/20/19 20:15 Aspirin PO 325 mg BID ZAYDA Administration Atorvastatin Calcium 20 mg 05/17/19 21:00 05/20/19 20:16 Lipitor PO 20 mg HS ZAYDA Administration Carbidopa/Levodopa 0.75 tab 05/18/19 15:00 05/20/19 20:15 Sinemet Cr 50/200 PO 0.75 tab TID ZAYDA Administration Clonazepam 0.5 mg 05/17/19 12:48 05/20/19 23:48 Klonopin PO 0.5 mg HS PRN Administration Insomnia Coenzyme Q10 100 mg 05/17/19 09:00 05/20/19 08:04 Coenzyme Q10 PO 100 mg DAILY ZAYDA Administration Docusate Sodium 100 mg 05/17/19 21:00 05/20/19 20:16 Colace PO 100 mg BID ZAYDA Administration Enoxaparin Sodium 40 mg 05/17/19 09:00 05/20/19 08:06 Lovenox SC 40 mg 0900 ZAYDA Administration Finasteride 5 mg 05/17/19 09:00 05/20/19 08:05 Proscar PO 5 mg DAILY ZAYDA Administration Gabapentin 100 mg 05/18/19 21:00 05/20/19 20:15 Neurontin PO 100 mg HS ZAYDA Administration Lactulose 20 gm 05/17/19 12:49 05/20/19 06:05 Lactulose PO 20 gm DAILYPRN PRN Administration Constipation Lidocaine 2 patch 05/17/19 09:00 05/20/19 08:13 Lidoderm 5% Patch TD 2 patch DAILY [facility] Administration Lisinopril 40 mg 05/17/19 09:00 05/20/19 08:05 Zestril PO 40 mg QAM [facility] Administration Metoprolol Succinate 50 mg 05/17/19 09:00 05/20/19 08:05 Toprol Xl PO 50 mg DAILY ZAYDA Administration Miscellaneous Medication 2 each 05/17/19 21:00 05/20/19 20:33 Lidocaine Patch Removal TOP Not Given 2100 [facility] Polyethylene Glycol 17 gm 05/18/19 14:00 05/20/19 14:11 Miralax PO Not Given 1400 [facility] Primidone 50 mg 05/17/19 09:00 05/20/19 20:14 Mysoline PO 50 mg BID ZAYDA Administration Tamsulosin HCl 0.4 mg 05/17/19 21:00 05/20/19 20:15 Flomax PO 0.4 mg HS ZAYDA Administration - Exam General Appearance: NAD ENT: moist mucosa Heart: RRR, no murmur, no gallops, no rubs Respiratory: CTAB, no wheezes, no rales, no ronchi Gastrointestinal: soft, non-tender, non-distended, normal bowel sounds Psychiatric: normal affect, normal behavior, A&O x 3 Hosp A/P (1) Low back pain Code(s): M54.5 - LOW BACK PAIN Status: Acute Qualifiers: Chronicity: acute Sciatica presence: unspecified whether sciatica present (2) Radial fracture Code(s): S52.90XA - UNSP FRACTURE OF UNSP FOREARM, INIT FOR CLOS FX Status: Acute Qualifiers: Encounter type: subsequent encounter Fracture type: closed Laterality: left (3) Dyslipidemia Code(s): E78.5 - HYPERLIPIDEMIA, UNSPECIFIED Status: Acute (4) BPH (benign prostatic hyperplasia) Code(s): N40.0 - BENIGN PROSTATIC HYPERPLASIA WITHOUT LOWER URINRY TRACT SYMP Status: Chronic (5) CAD (coronary artery disease) Code(s): I25.10 - ATHSCL HEART DISEASE OF [place] CORONARY ARTERY W/O ANG PCTRS Status: Chronic (6) HTN (hypertension) Code(s): I10 - ESSENTIAL (PRIMARY) HYPERTENSION Status: Chronic (7) Parkinsons disease Code(s): G20 - PARKINSON'S DISEASE Status: Chronic (8) Hyponatremia Code(s): E87.1 - HYPO-OSMOLALITY AND HYPONATREMIA Status: Acute - Plan Pain - on lidocaine patch - tylenol 3 prn - added gabapentin at low dose - Has back hardware from prior surgery - do not think he is a candidate for MRI. No fracture on plain xray and CT abd/pelvis - continue PT/OT Plan for SNF - pt is ready when approved Constipation - resolved - continue scheduled colace, miralax and prn meds For distal radius fracture - wrist immobilizer, no surgery indicated per discussion with Ortho. Needs f/u in 2 weeks with Ortho to monitor healing. Hyponatremia - sodium slightly worse, diet liberalized, BP up, will try restricting fluids. dvt prophy - lovenox and scd's gi prophy - not indicated code status - Full, pt does not desire prolonged measures or prolonged life support, but requests initial tx and life support to see if the situation resolves.
[2019-05-21] MEDS: Primidone 50 MG TAB PO SCH ×2 (08:49→20:32)
[2019-05-21] MEDS: Aspirin 325 MG TAB PO SCH ×2 (08:49→20:29)
[2019-05-21] MEDS: Ubidecarenone 50 MG CAP PO SCH (08:49)
[2019-05-21] MEDS: Lisinopril 20 MG TAB PO SCH (08:50)
[2019-05-21] MEDS: Docusate 100 MG CAP PO SCH ×2 (08:50→20:32)
[2019-05-21] MEDS: Amlodipine 5 MG TAB PO SCH ×2 (08:50→20:28)
[2019-05-21] MEDS: Carbidopa/Levodopa CR 50-200 mg Tablet PO SCH ×3 (08:51→20:29)
[2019-05-21] MEDS: Lidocaine 5% Patch TD SCH (08:51)
[2019-05-21] MEDS: Finasteride 5 MG TAB PO SCH (08:51)
[2019-05-21] MEDS: Enoxaparin Sodium 40 MG/0.4 ML SYRINGE SC SCH (08:51)
[2019-05-21] MEDS: Polyethylene Glycol 3350 17 GM Packet PO SCH (13:25)
[2019-05-21] MEDS: Lidocaine Patch Removal 1 EACH TOP SCH (20:28)
[2019-05-21] MEDS: Atorvastatin Calcium 20 MG TAB PO SCH (20:29)
[2019-05-21] MEDS: Melatonin 3 MG TAB PO PRN (20:32)
[2019-05-21] MEDS: Tamsulosin HCl 0.4 MG CAP PO SCH (20:32)
[2019-05-21] MEDS: Gabapentin 100 MG CAP PO SCH (20:32)
[2019-05-22 07:22] LABS: #Eosinphils 0.3 thou/uL (0.0-0.7); #Lymphocytes 1.1 thou/uL (1.20-3.40); #Monocytes 0.6 thou/uL (0.11-0.59); #Neutrophils 3.2 thou/uL (1.40-6.50); %Basophils 0.4 % (0.0-1.0); %Eosinophils 5.6 % (0.0-10.0); %Lymphocytes 21.5 % (21.0-51.0); %Monocytes 11.7 % (0.0-10.0); %Neutrophils 60.9 % (42.0-75.0); Hemoglobin 13.9 g/dL (14.0-18.0); Mean Corpuscular Hemoglobin 34.4 pg (27.0-31.0); Mean Corpuscular Volume 98.3 fL (78.0-98.0); Mean Platelet Volume 8.3 fL (7.4-10.4); Platelet Count 176 thou/uL (130-400); RBC Distribution Width 11.7 % (11.5-14.5); Red Blood Cell (RBC) Count 4.05 mill/uL (4.70-6.10); White Blood Cell (WBC) Count 5.2 thou/uL (4.8-10.8)
[2019-05-22 07:46] LABS: Anion Gap 13 mmol/L (10-20); BUN (Urea Nitrogen) 19 mg/dL (8.4-25.7); Calc. Creatinine Clearance 100 mL/min (70-130); Calcium 8.5 mg/dL (7.8-10.44); Carbon Dioxide 22 mmol/L (23-31); Chloride 99 mmol/L (98-107); Estimated GFR-MDRD Greater than 90; Glucose 92 mg/dL (83-110); Potassium 3.9 mmol/L (3.5-5.1); Sodium 130 mmol/L (136-145)
[2019-05-22] MEDS: Primidone 50 MG TAB PO SCH ×2 (08:18→20:35)
[2019-05-22] MEDS: Lisinopril 20 MG TAB PO SCH (08:18)
[2019-05-22] MEDS: Carbidopa/Levodopa CR 50-200 mg Tablet PO SCH ×3 (08:18→20:36)
[2019-05-22] MEDS: Ubidecarenone 50 MG CAP PO SCH (08:18)
[2019-05-22] MEDS: Aspirin 325 MG TAB PO SCH ×2 (08:18→20:35)
[2019-05-22] MEDS: Lidocaine 5% Patch TD SCH (08:19)
[2019-05-22] MEDS: Enoxaparin Sodium 40 MG/0.4 ML SYRINGE SC SCH (08:19)
[2019-05-22] MEDS: Amlodipine 5 MG TAB PO SCH ×2 (08:19→20:35)
[2019-05-22] MEDS: Finasteride 5 MG TAB PO SCH (08:19)
[2019-05-22] MEDS: Docusate 100 MG CAP PO SCH ×2 (08:19→20:35)
--- NOTE | 2019-05-22 11:51 | PDOC.HOSPP ---
- Subjective Encounter Date: 05/22/19 Encounter Time: 11:45 Subjective: f/u for acute low back pain, L wrist fx s/p fall. Awaiting SNF approval. Ambulated with PT today. No new complaints. - Objective Vital Signs & Weight: Vital Signs (12 hours) Temp Pulse Resp BP BP BP Pulse Ox 05/22/19 08:19 56 L 148/62 H 05/22/19 08:18 148/62 H 05/22/19 07:39 98.5 F 56 L 20 148/62 H 98 05/22/19 04:50 97.8 F 55 L 15 139/77 97 05/22/19 00:00 97.7 F 70 18 138/80 98 Weight Weight 223 lb 4.8 oz I&O: 05/21/19 05/22/19 05/23/19 06:59 06:59 06:59 Intake Total 1500 480 Output Total 1050 1300 Balance 450 -820 Result Diagrams: 05/22/19 04:55 05/22/19 04:55 Hospitalist ROS - Medication Medications: Active Medications Generic Name Dose Route Start Last Admin Trade Name Freq PRN Reason Stop Dose Admin Acetaminophen/Codeine Phosphate 1 tab 05/16/19 23:03 05/18/19 10:55 Tylenol #3 PO 1 tab Q4H PRN Administration Moderate Pain (4-6) Acetaminophen/Codeine Phosphate 2 tab 05/16/19 23:03 05/19/19 19:29 Tylenol #3 PO 2 tab Q4H PRN Administration Severe Pain (7-10) Amlodipine Besylate 2.5 mg 05/17/19 09:00 05/22/19 08:19 Norvasc PO 2.5 mg BID ZAYDA Administration Aspirin 325 mg 05/17/19 09:00 05/22/19 08:18 Aspirin PO 325 mg BID ZAYDA Administration Atorvastatin Calcium 20 mg 05/17/19 21:00 05/21/19 20:29 Lipitor PO 20 mg HS ZAYDA Administration Carbidopa/Levodopa 0.75 tab 05/18/19 15:00 05/22/19 08:18 Sinemet Cr 50/200 PO 0.75 tab TID ZAYDA Administration Clonazepam 0.5 mg 05/17/19 12:48 05/20/19 23:48 Klonopin PO 0.5 mg HS PRN Administration Insomnia Coenzyme Q10 100 mg 05/17/19 09:00 05/22/19 08:18 Coenzyme Q10 PO 100 mg DAILY ZAYDA Administration Docusate Sodium 100 mg 05/17/19 21:00 05/22/19 08:19 Colace PO 100 mg BID ZAYDA Administration Enoxaparin Sodium 40 mg 05/17/19 09:00 05/22/19 08:19 Lovenox SC 40 mg 0900 ZAYDA Administration Finasteride 5 mg 05/17/19 09:00 05/22/19 08:19 Proscar PO 5 mg DAILY ZAYDA Administration Gabapentin 100 mg 05/18/19 21:00 05/21/19 20:32 Neurontin PO 100 mg HS ZAYDA Administration Lactulose 20 gm 05/17/19 12:49 05/20/19 06:05 Lactulose PO 20 gm DAILYPRN PRN Administration Constipation Lidocaine 2 patch 05/17/19 09:00 05/22/19 08:19 Lidoderm 5% Patch TD 2 patch DAILY ZAYDA Administration Lisinopril 40 mg 05/17/19 09:00 05/22/19 08:18 Zestril PO 40 mg QAM ZAYDA Administration Melatonin 3 mg 05/21/19 19:32 05/21/19 20:32 Melatonin PO 3 mg HS PRN Administration Insomnia Metoprolol Succinate 50 mg 05/17/19 09:00 05/22/19 08:19 Toprol Xl PO 50 mg DAILY ZAYDA Administration Miscellaneous Medication 2 each 05/17/19 21:00 05/21/19 20:28 Lidocaine Patch Removal TOP 2 each 2100 ZAYDA Administration Polyethylene Glycol 17 gm 05/18/19 14:00 05/21/19 13:25 Miralax PO Not Given 1400 [facility] Primidone 50 mg 05/17/19 09:00 05/22/19 08:18 Mysoline PO 50 mg BID ZAYDA Administration Tamsulosin HCl 0.4 mg 05/17/19 21:00 05/21/19 20:32 Flomax PO 0.4 mg HS ZAYDA Administration - Exam General Appearance: NAD, awake alert Eye: PERRL, anicteric sclera ENT: normocephalic atraumatic, no oropharyngeal lesions Neck: supple, symmetric, no JVD, no thyromegaly Heart: RRR, no murmur, no gallops, no rubs, normal peripheral pulses Respiratory: CTAB, no wheezes, no rales, no ronchi, normal chest expansion Gastrointestinal: soft, non-tender, non-distended, normal bowel sounds, no palpable masses Extremities: no cyanosis, no clubbing, no edema Extremities - other findings: L wrist with splint in place Skin: normal turgor, no lesions Neurological: cranial nerve grossly intact, no new deficit Musculoskeletal: normal tone, generalized weakness Psychiatric: normal affect, normal behavior, A&O x 3 Hosp A/P (1) Hyponatremia Code(s): E87.1 - HYPO-OSMOLALITY AND HYPONATREMIA Status: Acute Plan: Mild, encourage regular diet (2) Low back pain Code(s): M54.5 - LOW BACK PAIN Status: Acute Qualifiers: Chronicity: acute Sciatica presence: unspecified whether sciatica present Plan: Pain control, Lidocaine patch, PT for mobilization (3) Radial fracture Code(s): S52.90XA - UNSP FRACTURE OF UNSP FOREARM, INIT FOR CLOS FX Status: Acute Qualifiers: Encounter type: subsequent encounter Fracture type: closed Laterality: left Plan: L wrist immobilizer, pain control, PT/OT (4) CAD (coronary artery disease) Code(s): I25.10 - ATHSCL HEART DISEASE OF [place] CORONARY ARTERY W/O ANG PCTRS Status: Chronic Plan: Chronic, stable (5) HTN (hypertension) Code(s): I10 - ESSENTIAL (PRIMARY) HYPERTENSION Status: Chronic Qualifiers: Hypertension type: essential hypertension Qualified Code(s): I10 - Essential (primary) hypertension Plan: Stable, continue home BP regimen - Plan PT/OT, social insurance adviser, out of bed/ambulate, DVT proph w/SCDs Stable currently Plan for SNF transfer when insurance approved PT/OT for mobilization Pain control Likely d/c in 24h
[2019-05-22] MEDS: Polyethylene Glycol 3350 17 GM Packet PO SCH (15:15)
[2019-05-22] MEDS: Tamsulosin HCl 0.4 MG CAP PO SCH (20:35)
[2019-05-22] MEDS: Melatonin 3 MG TAB PO PRN (20:35)
[2019-05-22] MEDS: Gabapentin 100 MG CAP PO SCH (20:36)
[2019-05-22] MEDS: Atorvastatin Calcium 20 MG TAB PO SCH (20:36)
[2019-05-22] MEDS: Lidocaine Patch Removal 1 EACH TOP SCH (20:37)
[2019-05-23] MEDS: Carbidopa/Levodopa CR 50-200 mg Tablet PO SCH (08:24)
[2019-05-23] MEDS: Finasteride 5 MG TAB PO SCH (08:25)
[2019-05-23] MEDS: Primidone 50 MG TAB PO SCH (08:25)
[2019-05-23] MEDS: Amlodipine 5 MG TAB PO SCH (08:25)
[2019-05-23] MEDS: Ubidecarenone 50 MG CAP PO SCH (08:25)
[2019-05-23] MEDS: Aspirin 325 MG TAB PO SCH (08:26)
[2019-05-23] MEDS: Lidocaine 5% Patch TD SCH (08:26)
[2019-05-23] MEDS: Docusate 100 MG CAP PO SCH (08:26)
[2019-05-23] MEDS: Enoxaparin Sodium 40 MG/0.4 ML SYRINGE SC SCH (08:26)
[2019-05-23] MEDS: Lisinopril 20 MG TAB PO SCH (08:26)
[2019-05-23 14:00] VITALS: BP 161/67; TEMP 98.2
--- NOTE | 2019-05-24 01:56 | DIS ---
DATE OF ADMISSION: 05/16/2019 DATE OF DISCHARGE: 05/23/2019 DISCHARGE DIAGNOSES: 1. Hyponatremia, mild. 2. Low back pain, improved. 3. Left distal radius fracture. 4. Coronary artery disease, chronic and stable. 5. Hypertension, chronic, stable. CONSULTATIONS: Dr. Estes with Orthopedic Surgery Service. PERTINENT LABORATORY AND X-RAY FINDINGS: Sodium ranged between 129 to 135. CBC showed a hemoglobin ranging between 12.[address] of the abdomen and pelvis dated 05/16/2019 showed no acute intraabdominal process. Two views of the left forearm show an impacted distal radius fracture. Lumbar spine radiographs dated 05/15/2019, showed no evidence of fracture or dislocation. [id number] degenerative changes noted. Pelvic radiographs dated 05/15/2019, showed no acute fracture. HOSPITAL COURSE: The patient was initially admitted after presenting status post mechanical fall sustaining a left radial fracture. The patient underwent evaluation by the Orthopedic surgery service and placed in a forearm/wrist splint. No specific acute surgical intervention was recommended. The patient was noted with severe back pain, undergoing plain radiographic imaging showing no evidence of acute fracture. The patient received general supportive management including lidocaine patch and oral and IV pain medication with overall improvement in symptoms during the hospital course. Due to patient's mobility issues and living situation, the patient was evaluated for potential inpatient rehabilitation/penitentiary facility placement. The patient progressed rapidly during his hospital course and was ambulating up to 500 feet using a platform walker with standby assistance. The patient was not deemed an appropriate candidate for penitentiary care with recommendations to return home with home health including physical therapy. The patient overall remained clinically stable during the hospital course and tolerated regular oral intake. Vital signs remained stable. I have examined the patient at the time of discharge and discussed followup instructions. The patient verbalized understanding and agreement, ready for discharge 05/23/2019. DISCHARGE MEDICATIONS: 1. Amlodipine 2.5 mg p.o. b.i.d. 2. Sinemet CR 25/100 mg 1.5 tablets p.o. t.i.d. 3. Klonopin 0.5 mg p.o. at bedtime p.r.n. 4. Vitamin B12 2500 mcg sublingually daily. 5. Docusate sodium 100 mg p.o. b.i.d. 6. Doxycycline 40 mg p.o. daily. 7. Lisinopril 40 mg p.o. q.a.m. 8. Metoprolol succinate 25 mg p.o. b.i.d. 9. Metrogel 0.1% gel one application topically daily. 10. Multivitamin 1 tablet p.o. daily. 11. Primidone 50 mg p.o. b.i.d. 12. Tamsulosin 0.4 mg p.o. at bedtime. 13. Coenzyme Q10 100 mg p.o. daily. 14. Tylenol No. 3, 300/30 mg 1-2 tablets p.o. q.4 to 6 hours p.r.n. pain. 15. Aspirin 325 mg p.o. b.i.d. 16. Lidocaine patch 2 patches applied daily, then removed p.r.n. FOLLOWUP: The patient may follow up with his primary care provider, Esvin Johnson within 7 days of discharge. The patient will follow up with Dr. Chuck Estes with [facility] Surgery [facility] and to call his office for appointment time and date. CONDITION ON DISCHARGE: Stable. ACTIVITY: Ad-torrey. DIET: Regular. SPECIAL INSTRUCTIONS: Home health with physical and occupational therapy. CODE STATUS: Full. DISPOSITION: To home 05/23/2019. Job ID: [id number]
== END 2019-05-23 14:03 ==
LOC: ERS 12:37 → T4-A 21:47
PROVIDERS: ADMIT Emergency Medicine; ATTEND Emergency Medicine
DX: S52.502A Unspecified fracture of the lower end of left radius, initial encounter for closed fracture (principal); E87.1 Hypo-osmolality and hyponatremia; M54.5 Low back pain; I25.10 Atherosclerotic heart disease of native coronary artery without angina pectoris; I10 Essential (primary) hypertension; W19.XXXA Unspecified fall, initial encounter; Z79.899 Other long term (current) drug therapy; Z79.82 Long term (current) use of aspirin; G20 Parkinson's disease; E78.5 Hyperlipidemia, unspecified; Z95.5 Presence of coronary angioplasty implant and graft; Z88.5 Allergy status to narcotic agent; Z88.7 Allergy status to serum and vaccine; Z88.8 Allergy status to other drugs, medicaments and biological substances; Z91.041 Radiographic dye allergy status
CPT/HCPCS: 74176; 80048 ×6; 81003; 85025 ×4; 96361; 96372 ×7; 96374; 96376; 97110; 97112; 97116 ×4; 97139 ×10; 97530 ×2; 97535; 99285; G0378 ×9; 36415; J1650; J3010

== ENCOUNTER 2019-10-02 15:43 | Inpatient (IN) | payer MEDICARE ==
[2019-10-02] MEDS ORDERED: Bacitracin 1 PK ONE (16:03)
[2019-10-02 16:13] LABS: #Eosinphils 0.1 thou/uL (0.0-0.7); #Lymphocytes 1.4 thou/uL (1.20-3.40); #Monocytes 0.6 thou/uL (0.11-0.59); #Neutrophils 3.8 thou/uL (1.40-6.50); %Basophils 0.1 % (0.0-1.0); %Eosinophils 2.1 % (0.0-10.0); %Lymphocytes 23.5 % (21.0-51.0); %Monocytes 10.7 % (0.0-10.0); %Neutrophils 63.6 % (42.0-75.0); Hemoglobin 14.8 g/dL (14.0-18.0); Mean Corpuscular HGB CONC 34.3 g/dL (32.0-36.0); Mean Corpuscular Hemoglobin 33.4 pg (27.0-31.0); Mean Corpuscular Volume 97.6 fL (78.0-98.0); Mean Platelet Volume 7.6 fL (7.4-10.4); Platelet Count 169 thou/uL (130-400); RBC Distribution Width 12.4 % (11.5-14.5); Red Blood Cell (RBC) Count 4.43 mill/uL (4.70-6.10)
[2019-10-02 16:19] LABS: INR-International Normal Ratio 0.9; PTT 30.5 sec (22.9-36.1); Prothrombin Time 12.2 sec (12.0-14.7)
--- NOTE | 2019-10-02 16:24 | RAD ---
AP PELVIS: 10/02/19 HISTORY: Left hip pain, fall. FINDINGS/IMPRESSION: There is an intertrochanteric fracture involving the left femur. POS: [facility]
--- NOTE | 2019-10-02 16:29 | RAD ---
SINGLE VIEW OF THE CHEST: 10/02/19 COMPARISON: 04/05/16. HISTORY: Chest pain and shortness of breath. FINDINGS: Single view of the chest shows a normal sized cardiomediastinal silhouette. There is no evidence of c onsolidation, mass, or pleural effusion. Degenerative changes are see in the spine. IMPRESSION: No evidence of acute cardiopulmonary disease. POS: [facility]
[2019-10-02 16:33] LABS: ALT (SGPT) Less than 7 U/L (8-55); AST (SGOT) 15 U/L (5-34); Albumin 3.9 g/dL (3.4-4.8); Alkaline Phosphatase 82 U/L (40-110); Anion Gap 11 mmol/L (10-20); BUN (Urea Nitrogen) 18 mg/dL (8.4-25.7); Bilirubin, Total 0.3 mg/dL (0.2-1.2); Calc. Creatinine Clearance 0 mL/min (70-130); Calcium 8.8 mg/dL (7.8-10.44); Carbon Dioxide 24 mmol/L (23-31); Chloride 96 mmol/L (98-107); Estimated GFR-MDRD 57; Globulin 2.3 g/dL (2.4-3.5); Glucose 101 mg/dL (83-110); Potassium 4.3 mmol/L (3.5-5.1); Protein, Total 6.2 g/dL (5.8-8.1); Sodium 127 mmol/L (136-145)
--- NOTE | 2019-10-02 16:34 | RAD ---
TWO VIEWS LEFT HIP: 10/02/19 COMPARISON: None. HISTORY: Fall with left hip pain. FINDINGS: Two views of the left hip shows a comminuted intertrochanteric left femur fracture. No dislocation of the femoral head is seen. No degenerative changes are seen in the left hip. Vascular calcifications are seen. Hardware is seen in the lumbar spine. IMPRESSION: Comminuted intertrochanteric left femur fracture. POS: [facility]
--- NOTE | 2019-10-02 17:10 | CT ---
CT BRAIN WITHOUT CONTRAST: 10/02/19 HISTORY: Fall, nausea, head injury. FINDINGS: Comparison made with exam of 10/16/15. Changes of cortical atrophy and chronic small vessel ischemic disease are again seen. The ventricular size is appropriate and the basilar cisterns patent. No evidence of acute infarct, hemorrhage, midline shift or abnormal extra-axial fluid collections are seen. The bony calvarium is intact. The visualized paranasal sinuses and mastoid air cells are well aerated. IMPRESSION: No CT evidence of acute intracranial process. POS: [facility]
[2019-10-02] MEDS ORDERED: Morphine 4 MG/ML VIAL ONE (17:37)
[2019-10-02] MEDS ORDERED: Ketorolac Tromethamine 30 MG/ML VIAL ONE (17:37)
[2019-10-02] MEDS ORDERED: Ondansetron ODT 4 MG TAB PO PRN (20:16)
[2019-10-02] MEDS ORDERED: Dextrose 5% in Water 1,000 ML IV PRN (20:16)
[2019-10-02] MEDS ORDERED: Morphine 2 MG/ML SYRINGE SLOW IVP PRN (20:16)
[2019-10-02] MEDS ORDERED: Dextrose 50% Abboject 50 ML SYRINGE SLOW IVP PRN (20:16)
[2019-10-02] MEDS ORDERED: Ondansetron PF 4 MG/2 ML Vial IVP PRN (20:16)
[2019-10-02] MEDS ORDERED: hydrALAZINE 20 MG/ML VIAL SLOW IVP PRN (20:16)
--- NOTE | 2019-10-02 20:23 | HP ---
REQUESTING PHYSICIAN: Dr. Reich. ATTENDING SURGEON: Dr. Gonsalves. CONSULTATION: Orthopedics, Dr. Segura. HISTORY OF PRESENT ILLNESS: The patient is an gentleman, who was at home at [place] when he tripped and fell, landing on his left side. The patient had immediate pain to his left side and was unable to walk. He denies any loss of consciousness. His was there. She called 911. He was brought to the emergency department, where he underwent evaluation and examination and was noted to have a left femoral neck fracture, at which time we were asked to evaluate the patient for admission, and obtained Orthopedic consultation. ALLERGIES: 1. IODINE. 2. EPINEPHRINE. 3. HYDROCODONE. 4. PROPOXYPHENE. 5. TETANUS VACCINATION. 6. TRAMADOL. CURRENT MEDICATIONS: 1. Metoprolol 50 mg once a day. 2. Amlodipine 2.5 mg twice a day. 3. Lisinopril 40 mg daily. 4. Tamsulosin 0.4 mg daily at bedtime. 5. Finasteride 5 mg daily. 6. CoQ10, 100 mg daily. 7. Alendronate 70 mg once a week. 8. Sinemet 25/100 mg one to [id number] tablets three times a day. 9. Primidone 50 mg twice a day. 10. Aspirin 325 daily. 11. Simvastatin 40 mg daily. PAST MEDICAL HISTORY: 1. Coronary artery disease. 2. Hypertension. 3. Hyperlipidemia. 4. Degenerative disk disease of spine. 5. Parkinson disease. SURGICAL HISTORY: 1. Cardiac stent x5. 2. Fusion of L-spine. 3. Multiple skin cancer removals. SOCIAL HISTORY: The patient lives in assisted living facility with his spouse. He denies drug, tobacco, or alcohol use. REVIEW OF SYSTEMS: A 10-point review of systems is negative as otherwise stated. PHYSICAL EXAMINATION: VITAL SIGNS: Blood pressure 158/87, heart rate 66, respirations 18, oxygen saturation is 94% on room air, and temperature is 98.0 GENERAL: The patient is resting comfortably in bed. He is sitting up, awake, alert, conversant appropriate. His only complaint is left-sided hip pain with movement. HEENT. Head is normocephalic and atraumatic. Eyes, extraocular motion intact. PERRLA bilaterally. Ears are atraumatic without discharge. Nose is atraumatic without discharge. Oropharynx is clear. NECK: Nontender. Trachea is midline with no JVD. CHEST: Clear to auscultation with good inspiratory and expiratory effort. HEART: Regular rate and rhythm. ABDOMEN: Soft, flat, nontender with active bowel sounds. PELVIS: Stable with tenderness to palpation to the left hip consistent with his fracture. EXTREMITIES: Neurovascularly intact x4. BACK: Atraumatic and nontender. LABORATORY FINDINGS: WBC 6.0, hemoglobin 14.8, hematocrit 43.2, platelets 169. Sodium 127, potassium 4.3, chloride 96, CO2 of 24, BUN 18, creatinine is 1.20, glucose 101. LFTs are unremarkable. INR 0.9. RADIOGRAPHIC REPORTS: AP chest x-ray shows no acute cardiopulmonary disease. Views of the left hip show a comminuted intertrochanteric left femur fracture. AP pelvis again demonstrates the left intertrochanteric femur fracture. CT of the brain shows no CT evidence of acute intracranial process. ASSESSMENT AND PLAN: 1. Status post ground level fall. 2. Left intertrochanteric femur fracture. 3. Acute pain secondary to above. 4. History of coronary artery disease, hypertension, Parkinson disease. Plan will be to admit the patient to the surgical floor. He will be made n.p.o. after midnight. He will have pain control, pulmonary toilet, gastritis and mechanical VTE prophylaxis. Dr. Segura was notified of this patient and after review of his exam and labs and radiographs, it was decided he will take the patient to the operating room tomorrow. The evaluation, examination, laboratory, and radiographic findings were discussed with Dr. Gonsalves prior to this dictation. Job ID: [id number]
[2019-10-02] MEDS: Morphine 4 MG/ML VIAL SLOW IVP PRN ×2 (20:38→23:17)
[2019-10-02] MEDS: Famotidine 20 MG TAB PO SCH (20:38)
[2019-10-02] MEDS ORDERED: Primidone 50 MG TAB PO SCH (21:30)
[2019-10-02] MEDS ORDERED: Famotidine 20 MG TAB PO SCH (21:30)
[2019-10-02] MEDS ORDERED: Docusate 100 MG CAP PO SCH (21:30)
[2019-10-02] MEDS ORDERED: Carbidopa/Levodopa CR 50-200 mg Tablet PO SCH (21:30)
[2019-10-02] MEDS ORDERED: Amlodipine 5 MG TAB PO SCH (21:30)
[2019-10-02] MEDS ORDERED: Tamsulosin HCl 0.4 MG CAP PO SCH (21:30)
[2019-10-02 21:55] VITALS: BMI 29.2
[2019-10-02] MEDS: Sodium Chloride 0.9% 1,000 ML IV SCH (23:18)
--- NOTE | 2019-10-03 01:30 | PRG ---
DATE OF SERVICE: 10/02/2019 SUBJECTIVE: Mr. Joseph is an 89-year-old male, who comes in this afternoon with status post ground level fall. He sustained left hip fracture. He also has a history of coronary artery disease, hypertension, Parkinson. The patient was admitted in 2002 for pain control, n.p.o. at midnight. Dr. Segura will take the patient to the OR tomorrow for left hip fracture fixation. The patient stated that pain is stable and tolerable. He developed no fever or shortness of breath. He voiced no concern. OBJECTIVE: GENERAL: Currently, the patient lying in bed comfortable with no acute respiratory distress. VITAL SIGNS: Temperature 97.9, heart rate 97, respiratory rate 20, and O2 saturation 98% on room air, blood pressure 165/96. LUNGS: Clear bilaterally. HEART: Regular rate and rhythm. ABDOMEN: Soft and nondistended. EXTREMITIES: Neurovascularly intact x4. NEUROLOGIC: No focal neurology deficits. ASSESSMENT: 1. Status post ground level fall. 2. Left hip fracture. 3. History of coronary artery disease, diabetes, hypertension, Parkinson's, stable. PLAN: Plan will be continue supportive care. Continue pain control. N.p.o. at midnight. Continue pulmonary toilet and gastritis prophylaxis. The patient will go to the OR tomorrow for left hip fracture fixation. Postop, the patient will need to work with physical therapy and occupational therapy. Anticipate placement in rehabilitation facility. Job ID: [id number]
[2019-10-03 01:51] LABS: Bilirubin Negative (Negative); Blood, Urine Negative (Negative); Clarity Clear (Clear); Glucose, Urine (Dipstick) Normal (Negative); Leukocyte Negative Leu/uL (Negative); Nitrite Negative (Negative); Protein, Urine (Dipstick) 10 mg/dL (Neg-Trace); Urobilinogen Normal mg/dL (Less than 2)
[2019-10-03 05:45] LABS: #Eosinphils 0.1 thou/uL (0.0-0.7); #Lymphocytes 1.2 thou/uL (1.20-3.40); #Monocytes 0.8 thou/uL (0.11-0.59); #Neutrophils 6.2 thou/uL (1.40-6.50); %Basophils 0.5 % (0.0-1.0); %Eosinophils 1.2 % (0.0-10.0); %Lymphocytes 14.9 % (21.0-51.0); %Monocytes 9.3 % (0.0-10.0); %Neutrophils 74.1 % (42.0-75.0); Hemoglobin 13.2 g/dL (14.0-18.0); Mean Corpuscular HGB CONC 32.8 g/dL (32.0-36.0); Mean Corpuscular Hemoglobin 32.4 pg (27.0-31.0); Mean Corpuscular Volume 98.8 fL (78.0-98.0); Mean Platelet Volume 7.7 fL (7.4-10.4); Platelet Count 173 thou/uL (130-400); RBC Distribution Width 12.3 % (11.5-14.5); Red Blood Cell (RBC) Count 4.06 mill/uL (4.70-6.10); White Blood Cell (WBC) Count 8.3 thou/uL (4.8-10.8)
[2019-10-03] MEDS: Morphine 4 MG/ML VIAL SLOW IVP PRN (05:55)
[2019-10-03 06:09] LABS: Anion Gap 11 mmol/L (10-20); BUN (Urea Nitrogen) 18 mg/dL (8.4-25.7); Calc. Creatinine Clearance 92 mL/min (70-130); Calcium 8.1 mg/dL (7.8-10.44); Carbon Dioxide 20 mmol/L (23-31); Chloride 96 mmol/L (98-107); Estimated GFR-MDRD 90; Glucose 110 mg/dL (83-110); Potassium 4.4 mmol/L (3.5-5.1); Sodium 123 mmol/L (136-145)
[2019-10-03] MEDS ORDERED: Carbidopa/Levodopa CR 50-200 mg Tablet PO SCH (09:00)
[2019-10-03] MEDS: Docusate 100 MG CAP PO SCH ×2 (09:26→22:15)
[2019-10-03] MEDS: Multivit, Therapeutic 1 TAB PO SCH (09:26)
[2019-10-03] MEDS: Polyethylene Glycol 3350 17 GM Packet PO SCH (09:26)
[2019-10-03] MEDS: Cyanocobalamin (Vitamin B-12) 1,000 MCG TAB PO SCH (09:26)
[2019-10-03] MEDS: Senokot S 8.6-50 MG TAB PO SCH ×2 (09:27→22:15)
--- NOTE | 2019-10-03 09:54 | CON ---
DATE OF CONSULTATION: 10/03/2019 REQUESTING PHYSICIAN: Yolanda Fu MD CONSULTING PHYSICIAN: Jeremiah Segura MD REASON FOR CONSULTATION: Left hip intertrochanteric shortened hip fracture. BRIEF CLINICAL HISTORY: Jose is an 89-year-old male, who had a witnessed fall yesterday afternoon at his home in [facility]. He tripped and fell, landing on his left side, had immediate onset of pain. EMS was dispatched and he was brought to [facility], where plain radiographs demonstrated comminuted and shortened left hip intertrochanteric fracture. He has been admitted by the Trauma Team and our service has been consulted for definitive orthopedic management of this problem. PAST MEDICAL HISTORY: Significant for hypertension; I believe Parkinson's; hyperlipidemia; coronary atherosclerosis. PAST SURGICAL HISTORY: He has had cardiac stents on 5 vessels, lumbar fusion. MEDICATIONS: 1. Metoprolol. 2. Norvasc. 3. Lisinopril. 4. Tamsulosin. 5. Finasteride. 6. Alendronate. 7. Sinemet. 8. Primidone. 9. Aspirin. 10. Simvastatin. ALLERGIES: IODINE, EPINEPHRINE, HYDROCODONE, PROPOXYPHENE, TETANUS, SOCIAL HISTORY: He denies any ethanol, tobacco, or illicit drug abuse. He lives in assisted living with his spouse. He is retired. He is a resident at [facility]. PHYSICAL EXAMINATION: GENERAL: This is a large healthy-appearing male for his age. He is alert, responsive, and appropriate with examiner. Short-term memory is questionable, but he will stay focused on immediate conversations, but will not carry on long conversations. EXTREMITIES: Visual inspection of the left lower extremity demonstrates him to have shortening in external rotation of the left lower extremity relative to the right. He is neurovascularly intact. Range of motion is not assessed due to known underlying fracture. There is no significant bruising appreciated at the left hip. IMAGING STUDIES: AP pelvis 2-view left hip demonstrates a shortened left hip intertrochanteric hip fracture. It is a comminuted base neck variant, which appears to be possibly 4-part in nature. IMPRESSION: 1. Left hip 4-part shortened varus angulated intertrochanteric hip fracture. 2. Coronary atherosclerosis. 3. Advanced age. 4. Parkinson disease. 5. Hypertension. 6. Peripheral vascular disease. PLAN: 1. The risks, benefits, options, alternatives, and rationale for proceeding with short trochanteric intramedullary nail fixation has been explained in great detail with the patient. He is ready to proceed. All questions were answered. No guarantee of outcome stated or implied. 2. I will attempt to contact his for further discussions and surgical planning. 3. Please see orders. Job ID: [id number]
[2019-10-03] MEDS: Famotidine 20 MG TAB PO SCH ×2 (09:59→22:14)
[2019-10-03] MEDS: Carbidopa/Levodopa 25-100 mg Tablet PO SCH ×3 (10:00→22:12)
[2019-10-03] MEDS: Amlodipine 5 MG TAB PO SCH ×2 (10:01→22:14)
[2019-10-03] MEDS: Finasteride 5 MG TAB PO SCH (10:01)
[2019-10-03] MEDS: Sodium Chloride 0.9% 1,000 ML IV SCH (10:06)
[2019-10-03] MEDS ORDERED: Fentanyl 100 MCG/2 ML VIAL ONE (12:25)
[2019-10-03] MEDS ORDERED: Promethazine HCl 25 MG/ML VIAL SLOW IVP PRN (14:09)
[2019-10-03] MEDS ORDERED: Promethazine HCl 25 MG/ML VIAL IM PRN (14:09)
[2019-10-03] MEDS ORDERED: Ondansetron HCl/PF 4 MG/2 ML Vial IVP PRN (14:09)
[2019-10-03] MEDS ORDERED: Rocuronium Bromide 10 MG/ML (10ML VIAL) ONE (14:13)
[2019-10-03] MEDS ORDERED: PROPOFOL 200 MG/20 ML VIAL ONE (14:13)
[2019-10-03] MEDS ORDERED: Lidocaine 1% PF 5 ML VIAL ONE (14:13)
[2019-10-03] MEDS ORDERED: EPHEDRINE 25 MG/5 ML SYRINGE ONE (14:13)
[2019-10-03] MEDS ORDERED: PHENYLEPHRINE-NS 100 MCG/ML 10 ML SYRINGE ONE (14:13)
[2019-10-03] MEDS ORDERED: Glycopyrrolate 0.2 MG/ML 5 ML SYRINGE ONE (14:13)
[2019-10-03] MEDS: Primidone 50 MG TAB PO SCH ×2 (15:22→22:14)
[2019-10-03] MEDS: Lisinopril 20 MG TAB PO SCH (15:22)
[2019-10-03] MEDS: Sodium Chloride 1 GM TAB PO SCH ×2 (15:22→22:15)
[2019-10-03] MEDS: Acetaminophen 500 MG TAB PO SCH ×3 (15:23→23:32)
[2019-10-03] MEDS: Ubidecarenone 50 MG CAP PO SCH (15:23)
[2019-10-03] MEDS ORDERED: RisperDAL M-TAB 1 MG TAB SL SCH (16:15)
[2019-10-03] MEDS ORDERED: Haloperidol Lactate 5 MG/ML VIAL IM SCH (16:15)
[2019-10-03] MEDS ORDERED: Haloperidol Lactate 5 MG/ML VIAL ONE (16:18)
[2019-10-03] MEDS ORDERED: Alendronate Sodium 70 mg Tablet PO SCH (19:15)
--- NOTE | 2019-10-03 20:50 | PRG ---
DATE OF SERVICE: 10/03/2019 SUBJECTIVE: The patient is hospital day 2, status post ground level fall when he sustained a left intertrochanteric femur fracture. He has been n.p.o. after midnight. He is currently awaiting surgery. His pain was controlled overnight. He does not report any issues at this time other than being hungry. PHYSICAL EXAMINATION: VITAL SIGNS: Temperature is 97.4, heart rate 69, blood pressure 129/74, respirations 16, oxygen saturation is 96% on room air. GENERAL: The patient is resting comfortably lying in bed. He is awake, conversant. He appears somewhat confused, though he has just recently received some morphine. Otherwise, he is able to be reoriented. His chief complaint is a dry mouth at this time. HEENT: Unremarkable. LUNGS: Clear to auscultation bilaterally. HEART: Regular rate and rhythm. ABDOMEN: Soft, flat, nontender with active bowel sounds. EXTREMITIES: Neurovascularly intact x4. LABORATORY FINDINGS: White blood cell count 8.3, hemoglobin 13.2, hematocrit 40.1, platelet 173. Sodium 123, potassium 4.4, chloride 96, CO2 of 20, BUN 18, creatinine 0.81, glucose 110. There are no radiographs reviewed this morning. ASSESSMENT AND PLAN: 1. Status post ground level fall. 2. Left intertrochanteric femur fracture, awaiting surgery. 3. Acute pain secondary to above. 4. Acute on chronic hyponatremia. 5. History of coronary artery disease. 6. Hypertension. 7. Parkinson disease. PLAN: Plan will be to continue n.p.o. status, pain control, and postoperatively we will begin physical and occupational therapy. We will begin free water restriction, add salt tablets to his diet. Repeat labs in the morning and begin working on placement at that time. Job ID: [id number]
--- NOTE | 2019-10-03 20:59 | PDOC.BPN ---
- Brief Progress Note DATE OF SERVICE: 10/03/2019 SUBJECTIVE: Mr. Joseph is an 89-year-old male, status post ground level fall. He sustained left hip fracture. Patient underwent L hip fixation today. Post op patient develop delerium , in [facility] he was treated with antipsychotics. Patient has been stable since this evening. He is aware and alert, oriented x2 . The patient stated that pain is stable and tolerable. He developed no fever or shortness of breath. He voiced no concern. OBJECTIVE: GENERAL: Currently, the patient lying in bed comfortable with no acute respiratory distress. VITAL SIGNS: stable LUNGS: Clear bilaterally. HEART: Regular rate and rhythm. ABDOMEN: Soft and nondistended. EXTREMITIES: Neurovascularly intact x4. NEUROLOGIC: No focal neurology deficits. ASSESSMENT: 1. Status post ground level fall. 2. Left hip fracture. 3. History of coronary artery disease, diabetes, hypertension, Parkinson's, stable. PLAN: Plan will be continue supportive care. Continue pain control. Continue pulmonary toilet and gastritis prophylaxis. patient will need to work with physical therapy and occupational therapy tomorrow . Anticipate placement in rehabilitation facility in the next 24-48h .
--- NOTE | 2019-10-03 21:21 | RAD ---
Intraoperative imaging of the left hip: 10/03/2019 COMPARISON: 10/02/2019 HISTORY: Fracture status post ORIF FINDINGS: The previously noted comminuted fracture of the proximal left femur has been treated with a femoral neck screw with a short intramedullary asya and a distal interlocking screw. There is anatomic alignment at the fracture site. IMPRESSION: ORIF as above
[2019-10-03] MEDS: CEFAZOLIN 2 GM in Premix Bag 1 BAG IVPB SCH (22:04)
[2019-10-03] MEDS: Simvastatin 40 MG TAB PO SCH (22:14)
[2019-10-03] MEDS: Tamsulosin HCl 0.4 MG CAP PO SCH (22:15)
--- NOTE | 2019-10-03 22:39 | OP ---
DATE OF PROCEDURE: 10/03/2019 PREOPERATIVE DIAGNOSIS: Left intertrochanteric femur fracture. POSTOPERATIVE DIAGNOSIS: Left intertrochanteric femur fracture. PROCEDURE: TFN nail, left proximal femur. ANESTHESIA: General. SYRUP MIXER HELPER: Rober Hall PA-C. ESTIMATED BLOOD LOSS: 100 mL. IMPLANT: Synthes TFNA 12 x 170 mm with 110 mm hip screw and a single distal cross-lock screw. COMPLICATIONS: None. DRAINS: None. SPECIMEN: None. OUTCOME: Satisfactory. INDICATIONS FOR PROCEDURE: Patient is an 89-year-old gentleman, status post ground level fall sustaining a left intertrochanteric femur fracture. After discussion with the patient including risks and benefits, we decided to proceed with intramedullary hip screw stabilization. Informed consent has been obtained. I believe all questions have been answered. DESCRIPTION OF PROCEDURE: Patient was brought to the operating room and a time-out performed followed by induction of general anesthesia. Next, patient was positioned supine on the fracture table with the injured extremity held in longitudinal traction and slight internal rotation. The well leg held with extension at the hip and padded on a bolster. Next, a sterile prep and drape was performed on the left lateral thigh. A skin incision was made proximal to the tip of the greater trochanter. After skin was sharply incised, dissection was carried down bluntly such that tip of the greater trochanter could be palpated. A threaded guidewire was then passed from the tip of the greater trochanter into the proximal femoral canal and checked with AP and lateral C-arm imaging. Next, the opening reamer was passed over this threaded guidewire to allow for nail placement. The nail was then driven by hand to an appropriate depth and once at an appropriate depth, a second incision was made distal to the first and then the hip screw jig was passed through this second incision and delivered up against the lateral cortex of the femur. A threaded guidewire was again delivered across the lateral cortex of the femur up the femoral neck into the femoral head approaching a [id number] position. Once appropriately positioned, measurement was taken off this guidewire and then reamer was passed over the guidewire. Next, the appropriate length hip screw was inserted over the guidewire. Once positioned, the locking mechanism was engaged and backed off a half turn. This was followed by insertion of a single distal cross-lock screw. After the completion of this, the jig was removed from the nail and then the wounds irrigated with bulb syringe and closed in layers with 2-0 Vicryl and víctor. Xeroform gauze tape dressing was applied to the lateral thigh and then the patient was transferred to recovery room in stable condition. There were no complications. Patient tolerated the procedure well. Job ID: [id number]
[2019-10-04] MEDS: Acetaminophen 500 MG TAB PO SCH ×4 (05:08→22:05)
[2019-10-04] MEDS: CEFAZOLIN 2 GM in Premix Bag 1 BAG IVPB SCH (05:09)
[2019-10-04 05:48] LABS: #Basophils 0.1 thou/uL (0.0-0.2); #Eosinphils 0.1 thou/uL (0.0-0.7); #Lymphocytes 1.1 thou/uL (1.20-3.40); #Monocytes 0.9 thou/uL (0.11-0.59); #Neutrophils 6.6 thou/uL (1.40-6.50); %Basophils 0.6 % (0.0-1.0); %Eosinophils 0.7 % (0.0-10.0); %Monocytes 9.9 % (0.0-10.0); %Neutrophils 75.8 % (42.0-75.0); Hemoglobin 11.4 g/dL (14.0-18.0); Mean Corpuscular HGB CONC 33.3 g/dL (32.0-36.0); Mean Corpuscular Hemoglobin 32.9 pg (27.0-31.0); Mean Corpuscular Volume 98.7 fL (78.0-98.0); Mean Platelet Volume 8.1 fL (7.4-10.4); Platelet Count 167 thou/uL (130-400); RBC Distribution Width 12.2 % (11.5-14.5); Red Blood Cell (RBC) Count 3.47 mill/uL (4.70-6.10); White Blood Cell (WBC) Count 8.7 thou/uL (4.8-10.8)
[2019-10-04 06:07] LABS: Anion Gap 11 mmol/L (10-20); BUN (Urea Nitrogen) 18 mg/dL (8.4-25.7); Calc. Creatinine Clearance 74 mL/min (70-130); Calcium 8.1 mg/dL (7.8-10.44); Carbon Dioxide 24 mmol/L (23-31); Chloride 95 mmol/L (98-107); Estimated GFR-MDRD 71; Glucose 125 mg/dL (83-110); Magnesium 1.9 mg/dL (1.6-2.6); Phosphorus 3.8 mg/dL (2.3-4.7); Potassium 4.2 mmol/L (3.5-5.1); Sodium 126 mmol/L (136-145)
[2019-10-04] MEDS: Carbidopa/Levodopa 25-100 mg Tablet PO SCH ×3 (09:23→20:19)
[2019-10-04] MEDS: Sodium Chloride 1 GM TAB PO SCH ×2 (09:23→20:21)
[2019-10-04] MEDS: Primidone 50 MG TAB PO SCH ×2 (09:24→20:19)
[2019-10-04] MEDS: Finasteride 5 MG TAB PO SCH (09:24)
[2019-10-04] MEDS: Amlodipine 5 MG TAB PO SCH ×2 (09:27→22:19)
[2019-10-04] MEDS: Ubidecarenone 50 MG CAP PO SCH (09:30)
[2019-10-04] MEDS: Docusate 100 MG CAP PO SCH ×2 (09:30→22:19)
[2019-10-04] MEDS: Senokot S 8.6-50 MG TAB PO SCH ×2 (09:30→22:19)
[2019-10-04] MEDS: Cyanocobalamin (Vitamin B-12) 1,000 MCG TAB PO SCH (09:31)
[2019-10-04] MEDS: Multivit, Therapeutic 1 TAB PO SCH (09:31)
[2019-10-04] MEDS: Lisinopril 20 MG TAB PO SCH (09:32)
[2019-10-04] MEDS: Polyethylene Glycol 3350 17 GM Packet PO SCH (09:32)
[2019-10-04] MEDS: Enoxaparin Sodium 40 MG/0.4 ML SYRINGE SC SCH (09:34)
[2019-10-04] MEDS: Ibuprofen 200 MG TAB PO PRN ×2 (09:43→22:05)
[2019-10-04] MEDS ORDERED: Sodium Chloride 0.9% 500 ML IV SCH ×2 (14:30→18:30)
--- NOTE | 2019-10-04 20:05 | PRG ---
DATE OF SERVICE: 10/04/2019 This is Martin Gutierrez PA-C dictating a report for Dr. Gonsalves. SUBJECTIVE: The patient is currently on the surgical floor. He is status post ground level fall when he sustained a left intertrochanteric femur fracture. He is hospital day #3, postop day 1 from his injury. He underwent TFN nail placement yesterday. He tolerated that procedure well. This morning, he is having breakfast and has no complaints at this time. The patient did require a sitter postoperatively as he had some altered mental status and agitation, but did have a restful night and this morning is much calmer. OBJECTIVE: VITAL SIGNS: Temperature 98.2, heart rate 85, blood pressure 106/65, respirations 18, oxygen saturation is 96% on room air. GENERAL: The patient is resting comfortably in bed. He is awake, alert, conversant. Does not have any complaints at this time. HEENT: Unremarkable. RESPIRATIONS: Nonlabored. EXTREMITIES: Neurovascularly intact x4. ABDOMEN: Soft, nondistended. LABORATORY FINDINGS: White blood cell count 8.7, hemoglobin 11.4, hematocrit 34.3, platelets 167. Sodium 126, potassium 4.2, chloride 95, CO2 of 24, BUN 18, creatinine 1.00, glucose 125, magnesium 1.9, and phosphorus 3.8. ASSESSMENT: 1. Status post ground level fall. 2. Status post open reduction and internal fixation of left intertrochanteric femur fracture. 3. Acute pain secondary to above, improved. 4. Acute on chronic hyponatremia, improved. 5. History of hypertension, coronary artery disease, and Parkinson disease. PLAN: Plan will be to continue supportive care. Encourage physical and occupational therapy, free water restriction, salt tablets, and repeat labs in the morning. The patient was evaluated this morning with Dr. Gonsalves. Job ID: [id number]
[2019-10-04] MEDS: Simvastatin 40 MG TAB PO SCH (20:19)
[2019-10-04] MEDS: Tamsulosin HCl 0.4 MG CAP PO SCH (20:20)
[2019-10-04 22:25] LABS: Hemoglobin 11.3 g/dL (14.0-18.0); Platelet Count 170 thou/uL (130-400)
[2019-10-04 22:46] LABS: Anion Gap 14 mmol/L (10-20); BUN (Urea Nitrogen) 26 mg/dL (8.4-25.7); Calc. Creatinine Clearance 65 mL/min (70-130); Calcium 8.2 mg/dL (7.8-10.44); Carbon Dioxide 21 mmol/L (23-31); Chloride 96 mmol/L (98-107); Estimated GFR-MDRD 61; Glucose 135 mg/dL (83-110); Magnesium 1.9 mg/dL (1.6-2.6); Phosphorus 3.3 mg/dL (2.3-4.7); Potassium 3.9 mmol/L (3.5-5.1); Sodium 127 mmol/L (136-145)
[2019-10-05] MEDS: Sodium Chloride 0.9% 1,000 ML IV SCH ×3 (03:50→20:50)
[2019-10-05] MEDS: Acetaminophen 500 MG TAB PO SCH ×3 (05:35→17:20)
[2019-10-05 07:39] LABS: Anion Gap 14 mmol/L (10-20); BUN (Urea Nitrogen) 28 mg/dL (8.4-25.7); Calc. Creatinine Clearance 61 mL/min (70-130); Calcium 7.9 mg/dL (7.8-10.44); Carbon Dioxide 19 mmol/L (23-31); Chloride 100 mmol/L (98-107); Estimated GFR-MDRD 57; Glucose 127 mg/dL (83-110); Hemoglobin 10.5 g/dL (14.0-18.0); Magnesium 2.2 mg/dL (1.6-2.6); Mean Corpuscular Hemoglobin 33.7 pg (27.0-31.0); Mean Corpuscular Volume 98.9 fL (78.0-98.0); Mean Platelet Volume 8.1 fL (7.4-10.4); Phosphorus 3.2 mg/dL (2.3-4.7); Platelet Count 151 thou/uL (130-400); Potassium 4.5 mmol/L (3.5-5.1); RBC Distribution Width 12.3 % (11.5-14.5); Red Blood Cell (RBC) Count 3.11 mill/uL (4.70-6.10); Sodium 128 mmol/L (136-145); White Blood Cell (WBC) Count 13.9 thou/uL (4.8-10.8)
[2019-10-05] MEDS: Polyethylene Glycol 3350 17 GM Packet PO SCH (08:23)
[2019-10-05] MEDS: Senokot S 8.6-50 MG TAB PO SCH ×2 (08:23→20:54)
[2019-10-05] MEDS: Docusate 100 MG CAP PO SCH ×2 (08:23→20:54)
[2019-10-05] MEDS: Ubidecarenone 50 MG CAP PO SCH (08:24)
[2019-10-05] MEDS: Lisinopril 20 MG TAB PO SCH (08:24)
[2019-10-05] MEDS: Amlodipine 5 MG TAB PO SCH ×2 (08:24→20:53)
[2019-10-05] MEDS: Primidone 50 MG TAB PO SCH ×2 (08:25→20:54)
[2019-10-05] MEDS: Multivit, Therapeutic 1 TAB PO SCH (08:25)
[2019-10-05] MEDS: Sodium Chloride 1 GM TAB PO SCH ×2 (08:25→20:55)
[2019-10-05] MEDS: Cyanocobalamin (Vitamin B-12) 1,000 MCG TAB PO SCH (08:25)
[2019-10-05] MEDS: Carbidopa/Levodopa 25-100 mg Tablet PO SCH ×3 (08:26→20:53)
[2019-10-05] MEDS: Finasteride 5 MG TAB PO SCH (08:26)
[2019-10-05] MEDS: Enoxaparin Sodium 40 MG/0.4 ML SYRINGE SC SCH (08:26)
--- NOTE | 2019-10-05 08:49 | PRG ---
DATE OF SERVICE: 10/05/2019 SUBJECTIVE: Mr. Joseph is doing fine. He had some hypotension last night, but has improved this morning. He is sleeping soundly currently. He has had a bedside bath this morning. His dressing was changed. No chest pain or shortness of breath. PHYSICAL EXAMINATION: VITAL SIGNS: Temperature is 97.5, pulse is 95, respiratory rate is 18, blood pressure is 125/75. GENERAL: He is lying supine. He is sleepy but arousable. He denies hip pain. EXTREMITIES: Left lower extremity has a clean and dry dressing. Neurovascularly intact distally. LABORATORY DATA: Hemoglobin is 10.5, hematocrit is 30.8. IMPRESSION: Status post left proximal femur intramedullary nail. PLAN: The patient will continue to mobilize with 25% weightbearing on the left leg. He will have pain control. He will have DVT prophylaxis. He will have discharge placement. Job ID: [id number]
--- NOTE | 2019-10-05 09:18 | RAD ---
PORTABLE CHEST ONE VIEW: 10/05/2019 6:54 a.m. HISTORY: Hypotension. Tachypnea. COMPARISON: 10/02/2019 FINDINGS: Heart size is normal. Aorta is tortuous. No lobar consolidation, pneumothoraces, tri pulmonary barry a or pleural effusions are seen. IMPRESSION: No acute process. POS: OFF
[2019-10-05 11:42] LABS: Band 13 % (5-11); Lymphocytes 2 % (21-51); MDiff Complete? YES; Monocytes 17 % (0-10); Neutrophil 68 % (42-75); Platelet Morphology Comment Appears Adequate
[2019-10-05] MEDS ORDERED: Sodium Chloride 0.9% 1,000 ML IV SCH (12:00)
[2019-10-05] MEDS: Simvastatin 40 MG TAB PO SCH (20:54)
[2019-10-05] MEDS: Tamsulosin HCl 0.4 MG CAP PO SCH (20:55)
--- NOTE | 2019-10-06 00:06 | PRG ---
DATE OF SERVICE: 10/05/2019 SUBJECTIVE: This dictation is done after multiple visits with the patient throughout the day. The patient originally was seen on the surgical floor. He was noted overnight to have episodes of hypotension and this morning, he was somewhat more somnolent and tachypneic. His hypotension had stabilized with his systolic blood pressure above 100. His heart rate in the 90s. Unfortunately, his respiratory rate was approaching 30 at which time we placed him on BiPAP and moved him to the IM. This morning, I also had a lengthy discussion with his spouse regarding his resuscitation status and she had informed me that the patient had an [id number] DNR and his wishes were to never go on to a cortical breathing machine or have heroic efforts done. This time, he was made a DNR, nursing staff verified this also. After being on BiPAP in the IM, the patient's respiratory rate returned to normal, his oxygen saturation stayed in the 90s, his tachycardia improved, and his blood pressure remained above 100. The patient's urinary output averaged 45-50 mL/h. PHYSICAL EXAMINATION: VITAL SIGNS: At the time of this dictation, temperature is 98, heart rate 100, blood pressure 143/61, respiratory rate 20, oxygen saturation 98%. GENERAL: The patient is resting comfortably in bed. He will open his eyes with loud verbal stimuli. Unfortunately, the patient does not have his hearing aids in, but he will open his eyes and answer very brief questions. Having seen him at admission and previously, he still remains somewhat somnolent, but definitely appears more comfortable. LUNGS: His respirations are clear to auscultation bilaterally. HEART: Regular rate and rhythm. ABDOMEN: Soft, nondistended with active bowel sounds. EXTREMITIES: Neurovascularly intact x4. LABORATORY FINDINGS: White blood cell count 13.9, hemoglobin 10.5, hematocrit 30.8, platelets 151. Sodium 128, potassium 4.5, chloride 100, CO2 of 19, BUN 28, creatinine 1.21, glucose 127, phosphorus 3.2, magnesium 2.2. RADIOGRAPHS: AP chest x-ray shows no lobar consolidation, pneumothoraces, tri pulmonary edema, or pleural effusions. ASSESSMENT AND PLAN: 1. Status post ground level fall. 2. Status post open reduction and internal fixation of right intertrochanteric femur fracture. 3. Acute on chronic hyponatremia, improved. 4. Tachypnea, without overt hypoxia, improved. 5. History of hypertension, coronary artery disease, and Parkinson disease. Plan will be to continue supportive care, BiPAP p.r.n. and at night. We will continue IV hydration and evaluating his oral intake as he becomes more alert. This patient was discussed with Dr. Gonsalves this morning. Job ID: [id number]
[2019-10-06] MEDS: Sodium Chloride 0.9% 1,000 ML IV SCH ×2 (01:07→10:32)
[2019-10-06] MEDS: Acetaminophen 500 MG TAB PO SCH ×4 (01:08→17:49)
[2019-10-06 03:33] LABS: Band 24 % (5-11); Hemoglobin 9.7 g/dL (14.0-18.0); Lymphocytes 6 % (21-51); MDiff Complete? YES; Mean Corpuscular HGB CONC 33.2 g/dL (32.0-36.0); Mean Corpuscular Hemoglobin 33.5 pg (27.0-31.0); Mean Platelet Volume 7.9 fL (7.4-10.4); Monocytes 12 % (0-10); Myelocyte 1 % (0-0); Neutrophil 56 % (42-75); Platelet Count 181 thou/uL (130-400); Platelet Morphology Comment Appears Adequate; RBC Distribution Width 12.4 % (11.5-14.5); Red Blood Cell (RBC) Count 2.91 mill/uL (4.70-6.10); White Blood Cell (WBC) Count 12.5 thou/uL (4.8-10.8)
[2019-10-06 03:44] LABS: Anion Gap 12 mmol/L (10-20); BUN (Urea Nitrogen) 26 mg/dL (8.4-25.7); Calc. Creatinine Clearance 94 mL/min (70-130); Calcium 7.7 mg/dL (7.8-10.44); Carbon Dioxide 19 mmol/L (23-31); Chloride 106 mmol/L (98-107); Estimated GFR-MDRD Greater than 90; Glucose 125 mg/dL (83-110); Magnesium 2.3 mg/dL (1.6-2.6); Phosphorus 2.4 mg/dL (2.3-4.7); Potassium 4.4 mmol/L (3.5-5.1); Sodium 133 mmol/L (136-145)
[2019-10-06] MEDS: Polyethylene Glycol 3350 17 GM Packet PO SCH (07:33)
--- NOTE | 2019-10-06 08:36 | PRG ---
DATE OF SERVICE: 10/06/2019 SUBJECTIVE: Jose is an 89-year-old male, postop day #3 from a right hip hemiarthroplasty. His disposition was changed overnight as he was sent to the intensive care unit for tachypnea which has since resolved. He is doing much better, no longer requiring BiPAP. OBJECTIVE: GENERAL: On exam, he is responsive, confused, but awake and alert. VITAL SIGNS: Temperature 98.6, pulse 98, blood pressure is 131/69. HIP: Inspection of left hip demonstrates his incision to be clean. No erythema. No strike through. No drainage. IMPRESSION: Postop day 3, left hip short trochanteric nail fixation. PLAN: Continue current care. 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 Job ID: [id number]
[2019-10-06] MEDS ORDERED: RisperDAL M-TAB 1 MG TAB SL SCH (09:00)
[2019-10-06] MEDS: Senokot S 8.6-50 MG TAB PO SCH ×2 (10:32→20:25)
[2019-10-06] MEDS: Docusate 100 MG CAP PO SCH ×2 (10:32→20:25)
[2019-10-06] MEDS: Cyanocobalamin (Vitamin B-12) 1,000 MCG TAB PO SCH (11:33)
[2019-10-06] MEDS: Ubidecarenone 50 MG CAP PO SCH (11:33)
[2019-10-06] MEDS: Lisinopril 20 MG TAB PO SCH (11:33)
[2019-10-06] MEDS: Multivit, Therapeutic 1 TAB PO SCH (11:34)
[2019-10-06] MEDS: Carbidopa/Levodopa 25-100 mg Tablet PO SCH ×3 (11:34→20:23)
[2019-10-06] MEDS: Finasteride 5 MG TAB PO SCH (11:34)
[2019-10-06] MEDS: Amlodipine 5 MG TAB PO SCH ×2 (11:34→20:24)
[2019-10-06] MEDS: Sodium Chloride 1 GM TAB PO SCH ×2 (11:35→20:23)
[2019-10-06] MEDS: Primidone 50 MG TAB PO SCH ×2 (11:35→20:23)
[2019-10-06] MEDS: Enoxaparin Sodium 40 MG/0.4 ML SYRINGE SC SCH (11:40)
--- NOTE | 2019-10-06 13:21 | PRG ---
DATE OF SERVICE: 10/06/2019 SUBJECTIVE: The patient remains in the IMCU. He was moved here yesterday after he was having some dyspnea. He tolerated his BiPAP all night and this morning, it was removed and he was much more alert than he was yesterday. He was responsive and interactive, although, he is confused. He is able to be reoriented and at my second visit, his was at bedside and he was being appropriate and she noted that he was returning close to his baseline. We again had a lengthy discussion regarding his placement. She noted again that they are from [place] and there are skilled facilities various options there, which she would like to explore. Otherwise, that the patient has not eaten yet, but he states that his pain is controlled and had no complaints other than wanting to go home. OBJECTIVE: VITAL SIGNS: Temperature is 97.3, heart rate 93, blood pressure 134/79, respirations 21, oxygen saturation is 98% on nasal cannula at 3 L. GENERAL: The patient is resting comfortably in bed. He was awake, interactive, and appropriate. LUNGS: Clear to auscultation bilaterally. HEART: Regular rate and rhythm. ABDOMEN: Soft, nondistended with active bowel sounds. EXTREMITIES: Neurovascularly intact x4. : The patient has a Escalera in place, which she has averaged 50 to 60 mL of urine per hour. LABORATORY FINDINGS: White blood cell count 12.5, hemoglobin 9.7, hematocrit 29.3, platelets 181. Sodium 133, potassium 4.4, chloride 106, CO2 of 19, BUN 26, creatinine 0.79, glucose 125, magnesium 2.3, phosphorus 2.4. There are no radiographs reviewed this morning. ASSESSMENT/PLAN: 1. Status post ground level fall. 2. Status post open reduction and internal fixation of right intertrochanteric femur fracture. 3. Acute on chronic hyponatremia, improved. 4. Tachypnea without overt hypoxia, resolved. 5. History of hypertension, coronary artery disease, and Parkinson disease. PLAN: Plan will be to continue supportive care. We will have his BiPAP p.r.n. and at night. We will monitor his urinary output, saline locking for now. Have Speech began reassess him this morning and hopefully, be able to get more physical and occupational therapy done. We will also continue working on placement. Job ID: [id number]
[2019-10-06] MEDS: Tamsulosin HCl 0.4 MG CAP PO SCH (20:24)
[2019-10-06] MEDS: Simvastatin 40 MG TAB PO SCH (20:24)
[2019-10-06] MEDS ORDERED: RisperDAL M-TAB 1 MG TAB PO SCH (22:00)
[2019-10-07] MEDS: Acetaminophen 500 MG TAB PO SCH ×4 (00:14→18:13)
[2019-10-07 04:15] LABS: #Eosinphils 0.2 thou/uL (0.0-0.7); #Monocytes 1.1 thou/uL (0.11-0.59); #Neutrophils 8.6 thou/uL (1.40-6.50); %Basophils 0.4 % (0.0-1.0); %Eosinophils 1.7 % (0.0-10.0); %Lymphocytes 9.1 % (21.0-51.0); %Monocytes 9.9 % (0.0-10.0); %Neutrophils 78.9 % (42.0-75.0); Hemoglobin 9.8 g/dL (14.0-18.0); Mean Corpuscular HGB CONC 33.5 g/dL (32.0-36.0); Mean Corpuscular Hemoglobin 34.8 pg (27.0-31.0); Mean Platelet Volume 7.9 fL (7.4-10.4); Platelet Count 197 thou/uL (130-400); RBC Distribution Width 12.4 % (11.5-14.5); Red Blood Cell (RBC) Count 2.83 mill/uL (4.70-6.10); White Blood Cell (WBC) Count 10.9 thou/uL (4.8-10.8)
[2019-10-07 04:40] LABS: Anion Gap 14 mmol/L (10-20); BUN (Urea Nitrogen) 24 mg/dL (8.4-25.7); Calc. Creatinine Clearance 99 mL/min (70-130); Calcium 7.9 mg/dL (7.8-10.44); Carbon Dioxide 17 mmol/L (23-31); Chloride 103 mmol/L (98-107); Estimated GFR-MDRD Greater than 90; Glucose 92 mg/dL (83-110); Magnesium 2.1 mg/dL (1.6-2.6); Phosphorus 1.7 mg/dL (2.3-4.7); Potassium 4.2 mmol/L (3.5-5.1); Sodium 130 mmol/L (136-145)
[2019-10-07] MEDS ORDERED: Sodium Phosphate 30 MMOL in Sodium Chloride 0.9% 250 ML 250 ML IVPB SCH (06:00)
[2019-10-07] MEDS: Cyanocobalamin (Vitamin B-12) 1,000 MCG TAB PO SCH (09:19)
[2019-10-07] MEDS: Amlodipine 5 MG TAB PO SCH ×2 (09:19→20:23)
[2019-10-07] MEDS: Lisinopril 20 MG TAB PO SCH (09:19)
[2019-10-07] MEDS: Multivit, Therapeutic 1 TAB PO SCH (09:19)
[2019-10-07] MEDS: Finasteride 5 MG TAB PO SCH (09:20)
[2019-10-07] MEDS: Carbidopa/Levodopa 25-100 mg Tablet PO SCH ×3 (09:20→20:21)
[2019-10-07] MEDS: Ubidecarenone 50 MG CAP PO SCH (09:20)
[2019-10-07] MEDS: Senokot S 8.6-50 MG TAB PO SCH ×2 (09:20→20:24)
[2019-10-07] MEDS: Sodium Chloride 1 GM TAB PO SCH ×2 (09:21→20:24)
[2019-10-07] MEDS: Docusate 100 MG CAP PO SCH ×2 (09:21→20:24)
[2019-10-07] MEDS: Primidone 50 MG TAB PO SCH ×2 (09:21→20:24)
[2019-10-07] MEDS: Polyethylene Glycol 3350 17 GM Packet PO SCH (09:21)
[2019-10-07] MEDS: Enoxaparin Sodium 40 MG/0.4 ML SYRINGE SC SCH (09:22)
--- NOTE | 2019-10-07 11:17 | PRG ---
DATE OF SERVICE: 10/07/2019 SUBJECTIVE: The patient remains in the IMCU. He has been off BiPAP all night and tolerating well. Per nursing report, he was up most of the night, slightly confused, however, is able to be reoriented. He was given one dose of Risperdal for increased agitation overnight. This morning he is very drowsy, but states he is in minimal pain. He is able to answer yes and no questions with repeated questioning. Previous discussions with states that they are patients of [facility] and would like to explore options of going back to [facility]. The patient has no other concerns or complaints this morning. OBJECTIVE: VITAL SIGNS: Temperature 98.2, heart rate 85, respiratory rate 19, O2 saturation 98% on room air, blood pressure 131/69. GENERAL: The patient resting comfortably in bed. He is alert and oriented x1. He is drowsy but awake with both verbal and tactile stimulus. He answers yes and no questions and will follow commands with repeated questioning. He has a GCS of 13. LUNGS: Symmetric chest wall expansion bilaterally. No increased work of breathing. HEART: Regular rate and rhythm. ABDOMEN: Nondistended. EXTREMITIES: Neurovascularly intact x4. : Escalera in place, averaging 60 mL/h urine output. NEUROLOGIC: The patient is alert and oriented x1. Following commands. Moves all four extremities well. No focal neurologic deficit. However, unable to fully assess secondary to mentation. LABORATORY DATA: White blood cell count 10.9, hemoglobin 9.8, platelets 197. Sodium 130, potassium 4.2, creatinine 0.75, phosphorus 1.7, magnesium 2.1. ASSESSMENT AND PLAN: 1. Status post ground level fall. 2. Status post open reduction and internal fixation of right intertrochanteric femur fracture. 3. Acute on chronic hyponatremia, improved. 4. Tachypnea with overt hypoxia, resolved. 5. Delirium, suspected secondary to medications and acute injury. 6. History of hypertension, coronary disease, Parkinson disease. PLAN: Plan will be to continue supportive care. Suspect altered mentation secondary to risperidone overnight and decreased sleep. We will monitor throughout the day and reassess in PM. The patient continues with adequate urine output. We will continue saline lock. Continue speech, PT, OT. We will continue to monitor in [facility] pending improvement of mentation. Case management to assist with placement, likely discharged to [facility]. The patient was seen and examined by Dr. Gonsalves on morning rounds and the above plan discussed. Job ID: [id number] [facility]ITAL[facility]cn[facility]
[2019-10-07] MEDS: Tamsulosin HCl 0.4 MG CAP PO SCH (20:23)
[2019-10-07] MEDS: Simvastatin 40 MG TAB PO SCH (20:24)
[2019-10-08] MEDS: Acetaminophen 500 MG TAB PO SCH ×5 (00:31→23:35)
[2019-10-08] MEDS: Ibuprofen 200 MG TAB PO PRN ×2 (00:52→09:16)
[2019-10-08 07:29] LABS: Anion Gap 10 mmol/L (10-20); BUN (Urea Nitrogen) 17 mg/dL (8.4-25.7); Calc. Creatinine Clearance 104 mL/min (70-130); Calcium 7.8 mg/dL (7.8-10.44); Carbon Dioxide 25 mmol/L (23-31); Chloride 101 mmol/L (98-107); Estimated GFR-MDRD Greater than 90; Glucose 100 mg/dL (83-110); Magnesium 2.1 mg/dL (1.6-2.6); Potassium 3.7 mmol/L (3.5-5.1); Sodium 132 mmol/L (136-145)
[2019-10-08] MEDS: Enoxaparin Sodium 40 MG/0.4 ML SYRINGE SC SCH (08:55)
[2019-10-08] MEDS: Polyethylene Glycol 3350 17 GM Packet PO SCH (08:55)
[2019-10-08] MEDS: Docusate 100 MG CAP PO SCH ×2 (08:57→20:33)
[2019-10-08] MEDS: Sodium Chloride 1 GM TAB PO SCH ×2 (08:57→20:27)
[2019-10-08] MEDS: Senokot S 8.6-50 MG TAB PO SCH ×2 (08:57→20:33)
[2019-10-08] MEDS: Ubidecarenone 50 MG CAP PO SCH (08:58)
[2019-10-08] MEDS: Primidone 50 MG TAB PO SCH ×2 (08:58→20:27)
[2019-10-08] MEDS: Multivit, Therapeutic 1 TAB PO SCH (08:59)
[2019-10-08] MEDS: Lisinopril 20 MG TAB PO SCH (08:59)
[2019-10-08] MEDS: Amlodipine 5 MG TAB PO SCH ×2 (08:59→20:27)
[2019-10-08] MEDS: Carbidopa/Levodopa 25-100 mg Tablet PO SCH ×3 (09:05→20:27)
[2019-10-08] MEDS: Finasteride 5 MG TAB PO SCH (09:06)
[2019-10-08] MEDS: Cyanocobalamin (Vitamin B-12) 1,000 MCG TAB PO SCH (09:06)
--- NOTE | 2019-10-08 10:38 | RAD ---
LEFT ANKLE 2 VIEWS: Date: 10/08/2019 INDICATION: History of pain after fall. IMPRESSION: There is a remote-appearing avulsion injury involving the medial malleolus. There is enthesopathic ch zhane seen off the calcaneus. There is diffuse osteopenia. There is scattered hindfoot and midfoot ost eoarthrosis. POS: BH
--- NOTE | 2019-10-08 11:15 | PRG ---
DATE OF SERVICE: 10/08/2019 SUBJECTIVE: The patient remains in the [facility]. He has continued to be off BiPAP the past two nights and tolerating well. Vital signs stable. Per nursing report, he slept most of the day yesterday and he was up most of the night. He had episodes of agitation and confusion and thus was initially given Seroquel with mild improvement. Later in the night, the patient had further agitation, trying to pull out his Escalera, get out of bed, and hit the nurse, thus he was placed in soft restraints. The patient would then calm down and was able to sleep a few hours. This morning, the patient is alert and oriented x1. He states he is hungry and would like breakfast. He states that he would like to be with his . The patient denies any pain or concerns for this morning. Previous discussions with states that they are patients of [facility] and would like to go back to [facility] if possible. OBJECTIVE: VITAL SIGNS: Temperature 98.0, heart rate 75, blood pressure 175/87 to 131/63, respiratory rate 14, and O2 saturations 100% on room air. GENERAL: The patient is resting comfortably in bed. Initially snoring loudly, having episodes of apneic events suggestive of sleep apnea. He is able to be woken with gentle touch and verbal stimulus. He follows commands, answers questions, however, is A and O x1. He appears drowsy, but awakable. No acute distress. LUNGS: Symmetric chest wall expansion bilaterally. No increased work of breathing. HEENT: Moist mucous membranes. Trachea midline. Neck is supple. HEART: Regular rate and rhythm. ABDOMEN: Nondistended. EXTREMITIES: Neurovascularly intact x4. : Escalera in place with adequate urine output, clear straw-colored urine. NEUROLOGIC: The patient is alert and oriented x1, however, follows commands, is able to be reoriented. He moves all extremities well. No focal neurologic deficit. LABORATORY DATA: Sodium 132, potassium 3.7, bicarb 25, creatinine 0.71, phosphorus 3.0, and magnesium 2.1. ASSESSMENT: 1. Status post ground-level fall. 2. Status post open reduction and internal fixation of left femur fracture, postop day #5. 3. [id number] hyponatremia, improved. 4. Tachypnea with overt hypoxia, resolved. 5. Acute hospital delirium. 6. History of hypertension, coronary artery disease, and Parkinson disease. PLAN: Plan will be to continue supportive care. The patient does have hospital acquired delirium. This morning, we will move him out of the ICU and onto the floor near the nurse's station. We will reorient frequently, encourage working with PT and OT during the day. Blinds open during the day and other delirium precautions. We will hope to remove restraints and keep off overnight. The patient continues to have adequate urine output. We will continue saline lock. We will continue speech, PT, and OT. We will initiate bladder training and attempt to remove Escalera. Case management working to assist with placement. Would likely discharge to [facility]. The patient was seen and examined by Dr. Gonsalves on morning rounds. The above plan discussed. Job ID: [id number] MTDD
--- NOTE | 2019-10-08 14:03 | PQF ---
CLINICAL DOCUMENTATION IMPROVEMENT CLARIFICATION FORM: ICD-10 Updated PLEASE DO AN ADDENDUM TO THE PROGRESS NOTE WITH ANY DOCUMENTATION UPDATES OR ADDITIONS AND CARRY THROUGH TO DC SUMMARY. THANK YOU. DATE: 10/08/2019 ATTN: Dr. Gonsalves Please exercise your independent, professional judgment in responding to the clarification form. Clinical indicators are provided on the bottom of this form for your review Please check appropriate box(s): [ x ] Encephalopathy: Type: [ ] Acute [ ] Subacute [ ] Chronic Etiology: [ x] Metabolic [ ] Toxic [ ] Drug induced: [ ] Unspecified [ x ] in the setting of underlying dementia [ ] Other (please specify) [ ] Transient Alteration of Awareness [ ] Other diagnosis [ ] Unable to determine In addition, please specify: Present on Admission (POA): [x ] Yes [ ] No [ ] Unable to determine For continuity of documentation, please document condition throughout progress notes and discharge summary. Thank You. CLINICAL INDICATORS - SIGNS / SYMPTOMS / LABS / RESULTS AND LOCATION IN EMR 10/02 (Briceño): Post op pt develop delirium, in which he was treated with antipsychotics 10/02 (Matt) The pt did require a sitter postoperatively as he had some altered mental status and agitation, but did have a restful night and this morning is much calmer. 10/05 (Matt) He is able to be reoriented and at my second visit, his was at bedside and he was being appropriate and she noted that he was returning close to his baseline. 10/06 (Florencio) Delirium, suspected secondary to medications and acute injury. Suspect altered mentation secondary to risperidone overnight and decreased sleep. 10/07 (Florencio) Acute hospital delirium. RISKS: H&P 10/01: 89 yo with PMH CAD, HTN, Parkinson disease. L intertrochanteric femur fracture. Op Note 10/02: TFN nail, left proximal femur. Anesthesia: General. 09/02 (Matt) Acute on chronic hyponatremia TREATMENT: Order 10/02: Haldol 5mg IM 1615 one time dose Oder 10/02: Risperdal 1 mg one time dose 10/02 (Matt) We will begin free water restriction, add salt tablets to his diet. 10/04 (Matt) We will continue IV hydration and evaluating his oral intake as he becomes more alert. Order 10/05-10/07: Seroquel 25mg po daily. 10/07 (Florencio) We will reorient frequently, encourage wkg with PT/OT during the day. Blinds open during the day. Thank you, Sue (This form is maintained as a part of the permanent medical record) 2015 [employer]. All Rights Reserved Sue Lopez RN, BSN [email or web address] Cell [facility]
[2019-10-08] MEDS: Tamsulosin HCl 0.4 MG CAP PO SCH (20:27)
[2019-10-08] MEDS: Simvastatin 40 MG TAB PO SCH (20:28)
--- NOTE | 2019-10-08 23:43 | PRG ---
DATE OF SERVICE: 10/08/2019 SUBJECTIVE: The patient was seen this evening during rounds. He was sitting up in bed with no signs of acute distress. He was mildly confused, but cooperative. He was eating some pudding. Nursing reported no acute events. OBJECTIVE: VITAL SIGNS: Temperature 98.4, pulse 83, respirations 18, oxygen saturation 98% on room air, and blood pressure 149/68. GENERAL: Well-appearing elderly male, sitting up in bed with no signs of acute distress. PULMONARY: Equal chest rise and fall. No signs of acute respiratory distress. ASSESSMENT: 1. Status post ground level fall. 2. Left intertrochanteric femur fracture, status post repair. 3. Hyponatremia, improving. 4. Urinary retention, resolving. 5. History of coronary artery disease, hypertension, and Parkinson. PLAN: Continue current diet and pain regimen. Continue physical and occupational therapy. Continue to monitor void and output. The patient is ready for discharge at this time. He is pending placement at a long term facility. Job ID: [id number]
[2019-10-09 05:35] LABS: Anion Gap 11 mmol/L (10-20); BUN (Urea Nitrogen) 14 mg/dL (8.4-25.7); Calc. Creatinine Clearance 104 mL/min (70-130); Calcium 7.7 mg/dL (7.8-10.44); Carbon Dioxide 24 mmol/L (23-31); Chloride 101 mmol/L (98-107); Estimated GFR-MDRD Greater than 90; Glucose 99 mg/dL (83-110); Magnesium 1.8 mg/dL (1.6-2.6); Phosphorus 2.9 mg/dL (2.3-4.7); Potassium 3.6 mmol/L (3.5-5.1); Sodium 132 mmol/L (136-145)
[2019-10-09] MEDS: Acetaminophen 500 MG TAB PO SCH ×3 (06:09→18:28)
[2019-10-09] MEDS: Cyanocobalamin (Vitamin B-12) 1,000 MCG TAB PO SCH (09:25)
[2019-10-09] MEDS: Ubidecarenone 50 MG CAP PO SCH (09:25)
[2019-10-09] MEDS: Enoxaparin Sodium 40 MG/0.4 ML SYRINGE SC SCH (09:25)
[2019-10-09] MEDS: Multivit, Therapeutic 1 TAB PO SCH (09:26)
[2019-10-09] MEDS: Carbidopa/Levodopa 25-100 mg Tablet PO SCH ×3 (09:26→19:58)
[2019-10-09] MEDS: Sodium Chloride 1 GM TAB PO SCH ×2 (09:26→19:57)
[2019-10-09] MEDS: Lisinopril 20 MG TAB PO SCH (09:26)
[2019-10-09] MEDS: Finasteride 5 MG TAB PO SCH (09:27)
[2019-10-09] MEDS: Amlodipine 5 MG TAB PO SCH ×2 (09:27→19:58)
[2019-10-09] MEDS: Polyethylene Glycol 3350 17 GM Packet PO SCH (09:29)
[2019-10-09] MEDS: Senokot S 8.6-50 MG TAB PO SCH ×2 (09:29→19:59)
[2019-10-09] MEDS: Docusate 100 MG CAP PO SCH ×2 (09:29→19:59)
[2019-10-09] MEDS: Primidone 50 MG TAB PO SCH ×2 (12:42→19:58)
--- NOTE | 2019-10-09 14:23 | PRG ---
DATE OF SERVICE: 10/09/2019 SUBJECTIVE: This morning, the patient is doing very well. He was transferred to the floor yesterday. Overnight, restraints were able to be kept off; however, the patient did have a sitter. He tried to get out of bed once, however, was able to be reoriented, placed back in bed. He slept on and off. Escalera was able to be removed yesterday and he has voided spontaneously. This morning, he is alert and oriented x1, and pleasant. Much more alert and talkative than on previous days. Tolerating breakfast well and voiding without difficulty. He states his pain is well controlled. There are no concerns this morning. Case management has continued to work for [facility]. OBJECTIVE: VITAL SIGNS: Temperature 97.2, heart rate 84, respiratory rate 18, O2 saturation 95% on room air, blood pressure 155/76. GENERAL: The patient is sitting upright in bed. Alert and oriented x1. Much more talkative than on previous days. He is in no acute distress. LUNGS: Symmetric chest wall expansion bilaterally. No increased work of breathing. HEENT: Moist mucous membranes. Trachea midline. NECK: Supple. HEART: Regular rate and rhythm. ABDOMEN: Nondistended, nontender. EXTREMITIES: Neurovascularly intact x4. LABORATORY DATA: Sodium 132, potassium 3.6, BUN 14, creatinine 0.71. ASSESSMENT: 1. Status post ground level fall. 2. Status post open reduction and internal fixation of left femur fracture, postop day #6. 3. Acute on chronic hyponatremia, improved. 4. Acute hypoxia and tachypnea, resolved. 5. Hospital delirium, improved. 6. History of hypertension, coronary artery disease, and Parkinson disease. PLAN: Continue supportive care. Delirium much improved. We will discontinued sitter today. The patient with adequate urine output. We will continue to monitor. We will continue delirium precautions. At this time, the patient is stable and appropriate for discharge to [facility]. Appreciate case management assistance. The patient was seen and examined by Dr. Gonsalves on morning rounds. The above plan discussed with the patient. Job ID: [id number] MTDD
[2019-10-09] MEDS: Tamsulosin HCl 0.4 MG CAP PO SCH (19:58)
[2019-10-09] MEDS: Simvastatin 40 MG TAB PO SCH (19:59)
--- NOTE | 2019-10-09 21:25 | PRG ---
DATE OF SERVICE: 10/09/2019 SUBJECTIVE: The patient was seen this evening during rounds. He was lying in bed, resting comfortably, and asleep with no signs of acute distress. Nursing reported no acute events. OBJECTIVE: VITAL SIGNS: Temperature 98.4, pulse 76, respirations 16, oxygen saturation 98% on room air, blood pressure 157/68. GENERAL: Well-appearing elderly male, lying in bed, asleep, with no signs of acute distress. PULMONARY: Equal chest rise and fall. No signs of acute respiratory distress. ASSESSMENT: 1. Status post ground level fall. 2. Left intertrochanteric femur fracture, status post repair. 3. Urinary retention, resolved. 4. Acute hyponatremia, stable. PLAN: Continue current diet and pain regimen. Continue physical and occupational therapy. The patient's acute delirium appears to have resolved, and he is resting comfortably. We will likely be able to discharge him to a snf facility tomorrow since he no longer is requiring restraints or a sitter. He is ready for discharge at this time. Job ID: [id number]
[2019-10-10] MEDS: Acetaminophen 500 MG TAB PO SCH ×3 (01:35→11:02)
[2019-10-10] MEDS: Senokot S 8.6-50 MG TAB PO SCH (08:26)
[2019-10-10] MEDS: Ubidecarenone 50 MG CAP PO SCH (08:26)
[2019-10-10] MEDS: Polyethylene Glycol 3350 17 GM Packet PO SCH (08:26)
[2019-10-10] MEDS: Enoxaparin Sodium 40 MG/0.4 ML SYRINGE SC SCH (08:26)
[2019-10-10] MEDS: Amlodipine 5 MG TAB PO SCH (08:27)
[2019-10-10] MEDS: Finasteride 5 MG TAB PO SCH (08:27)
[2019-10-10] MEDS: Multivit, Therapeutic 1 TAB PO SCH (08:27)
[2019-10-10] MEDS: Carbidopa/Levodopa 25-100 mg Tablet PO SCH (08:27)
[2019-10-10] MEDS: Sodium Chloride 1 GM TAB PO SCH (08:28)
[2019-10-10] MEDS: Lisinopril 20 MG TAB PO SCH (08:28)
[2019-10-10] MEDS: Cyanocobalamin (Vitamin B-12) 1,000 MCG TAB PO SCH (08:28)
[2019-10-10] MEDS: Docusate 100 MG CAP PO SCH (08:29)
[2019-10-10] MEDS: Primidone 50 MG TAB PO SCH (09:13)
[2019-10-10 10:40] VITALS: BP 146/71; TEMP 99.3
--- NOTE | 2019-10-11 03:52 | DIS ---
DATE OF ADMISSION: 10/02/2019 DATE OF DISCHARGE: 10/10/2019 ATTENDING SURGEON: Dr. Gonsalves. CONSULTS: Orthopedic Surgery, Dr. Segura. PROCEDURES: On 10/03/2019, TFN nail left proximal femur fracture. PRIMARY DIAGNOSES: Status post ground level fall, left intertrochanteric femur fracture. SECONDARY DIAGNOSES: History of coronary artery disease, hypertension, and Parkinson disease. DISCHARGE MEDICATIONS: 1. Acetaminophen 1000 mg q.6 hours. Do not exceed 4000 mg a day. 2. Acetaminophen with codeine No. 3 one to two tablets as needed for pain. May resume this home medication. 3. Fosamax 70 mg p.o. q.7 days. 4. Amlodipine 2.5 mg p.o. b.i.d. 5. Aspirin 81 mg p.o. daily. 6. Sinemet CR 1.5 tablets p.o. b.i.d. 7. Vitamin B12 of 2500 mcg sublingual daily. 8. Docusate stool softener 100 mg p.o. b.i.d. as needed. 9. Doxycycline Monohydrate 40 mg p.o. daily before meals. 10. Finasteride 5 mg p.o. daily. 11. Ibuprofen 400 mg q.8 hours as needed for pain. 12. Lisinopril 40 mg p.o. daily. 13. Metoprolol succinate 25 mg p.o. b.i.d. 14. Multivitamin daily. 15. Primidone 50 mg p.o. b.i.d. 16. Simvastatin 40 mg p.o. at bedtime. 17. Flomax 0.4 mg p.o. at bedtime. 18. CoQ10 of 100 mg p.o. daily. No discontinued medications. HISTORY OF PRESENT ILLNESS AND HOSPITAL COURSE: This is an 89-year-old gentleman, who lives at [facility], who presented to the emergency room after he tripped and fell, landing on his left side. The patient denies any loss of consciousness. The patient was evaluated in the emergency room and was found to have a left femoral neck fracture. The patient's pain was controlled pre and postop. The patient did have some urinary retention postop and had to be recatheterized. Bladder trials were successful and the patient was able to void on his own. The patient also had some delirium during the nighttime and was given Seroquel with some relief. At one point, the patient had to be restrained, so he did not injure himself. The patient also had an episode of tachypnea and hypoxia overnight postop, which required him to be on BiPAP, which helped. The patient was eventually moved back to the surgical floor with a sitter. The patient did minimal work with Physical Therapy. He remained confused off and on. The patient had an extended length of stay due to being in restraints and also due to having a sitter. Over the last 24 hours, the patient was sitter free and restraint free and very cooperative. On the day of discharge, the patient was examined in by Dr. Gonsalves. The patient had no complaints and the pain was well controlled. The patient's vital signs were stable and his exam was unremarkable including cardiopulmonary and GI exam. The patient was deemed stable for discharge to [facility] for continued physical and occupational therapy. DISPOSITION: Stable. DISCHARGE INSTRUCTIONS: 1. Location: [facility]. 2. Diet: Regular diet as tolerated, Ensure 3 times a day. 3. Activity: Orthopedic limitations, partial weightbearing left lower extremity. 4. Followup: Follow up with Dr. Segura as directed. No need to follow up with Trauma Services. Please call for any questions. This is just a summary of the patient's hospital stay. Please see the patient's entire medical record for details. Job ID: [id number]
== END 2019-10-10 12:35 | DRG 480 ==
LOC: ERS 15:43 → SJJU 19:33 → IMCU/EMU 10-05 12:15 → SURG A 10-08 14:05
PROVIDERS: ADMIT Surgery; ATTEND Surgery
PROC: 0QH636Z Insertion of Intramedullary Internal Fixation Device into Right Upper Femur, Percutaneous Approach (ICD-10-PCS; principal; 2019-10-03)
DX: S72.142A Displaced intertrochanteric fracture of left femur, initial encounter for closed fracture (principal); G93.41 Metabolic encephalopathy; E87.1 Hypo-osmolality and hyponatremia; G20 Parkinson's disease; F02.80 Dementia in other diseases classified elsewhere, unspecified severity, without behavioral disturbance, psychotic disturbance, mood disturbance, and anxiety; I10 Essential (primary) hypertension; W01.0XXA Fall on same level from slipping, tripping and stumbling without subsequent striking against object, initial encounter; I25.10 Atherosclerotic heart disease of native coronary artery without angina pectoris; E78.5 Hyperlipidemia, unspecified; R06.82 Tachypnea, not elsewhere classified; R33.9 Retention of urine, unspecified; R09.02 Hypoxemia; Y92.099 Unspecified place in other non-institutional residence as the place of occurrence of the external cause; Z95.0 Presence of cardiac pacemaker; Z98.1 Arthrodesis status; Z91.041 Radiographic dye allergy status; Z88.6 Allergy status to analgesic agent; Z88.8 Allergy status to other drugs, medicaments and biological substances; Z79.899 Other long term (current) drug therapy; Z88.7 Allergy status to serum and vaccine; Z79.82 Long term (current) use of aspirin
CPT/HCPCS: 36415; 36416; 70450; 71045; 72170; 76000; 80048; 80053; 81003; 82533; 83735; 83880; 84100; 85025; 85610; 85730; 93005; 93010; 94660; 96374; 96375; J0690; J1630; J1650; J1885; J2001; J2270; J2704; J3010; J7050; J7620; P9045

== ENCOUNTER 2019-10-22 18:12 | Inpatient (IN) | payer MEDICARE ==
[2019-10-22 19:01] LABS: #Basophils 0.1 thou/uL (0.0-0.2); #Eosinphils 0.1 thou/uL (0.0-0.7); #Lymphocytes 1.2 thou/uL (1.20-3.40); #Monocytes 0.8 thou/uL (0.11-0.59); #Neutrophils 6.1 thou/uL (1.40-6.50); %Basophils 0.7 % (0.0-1.0); %Eosinophils 1.6 % (0.0-10.0); %Lymphocytes 14.4 % (21.0-51.0); %Monocytes 10.1 % (0.0-10.0); %Neutrophils 73.3 % (42.0-75.0); Hemoglobin 8.2 g/dL (14.0-18.0); Mean Corpuscular HGB CONC 33.4 g/dL (32.0-36.0); Mean Corpuscular Hemoglobin 32.8 pg (27.0-31.0); Mean Corpuscular Volume 98.3 fL (78.0-98.0); Mean Platelet Volume 6.4 fL (7.4-10.4); Platelet Count 544 thou/uL (130-400); RBC Distribution Width 13.3 % (11.5-14.5); Red Blood Cell (RBC) Count 2.51 mill/uL (4.70-6.10); White Blood Cell (WBC) Count 8.3 thou/uL (4.8-10.8)
--- NOTE | 2019-10-22 19:03 | RAD ---
EXAM: CHEST ONE VIEW HISTORY: Nausea and vomiting. Suspected GI bleed. COMPARISON: 10/05/2019 FINDINGS: Cardiac silhouette is magnified by projection. Pulmonary vasculature is within normal limits. The sandra gs are clear. There is questionable nodular density at the right lung base, but this was not seen on the prior exam or on study of 10/02/2019 is likely artifactual. Degenerative changes are again seen in the spine. Vascular calcifications are seen in thoracic aorta. Chest is stable compared to prior exam. IMPRESSION: No acute cardiopulmonary process.
[2019-10-22 19:11] LABS: Prothrombin Time 13.6 sec (12.0-14.7)
[2019-10-22 19:23] LABS: ALT (SGPT) 12 U/L (8-55); AST (SGOT) 18 U/L (5-34); Albumin 3.4 g/dL (3.4-4.8); Alkaline Phosphatase 149 U/L (40-110); Anion Gap 14 mmol/L (10-20); BUN (Urea Nitrogen) 21 mg/dL (8.4-25.7); Bilirubin, Total 0.6 mg/dL (0.2-1.2); CK (CPK) 55 U/L (30-200); Calc. Creatinine Clearance 0 mL/min (70-130); Calcium 8.2 mg/dL (7.8-10.44); Carbon Dioxide 23 mmol/L (23-31); Chloride 98 mmol/L (98-107); Estimated GFR-MDRD 86; Globulin 2.8 g/dL (2.4-3.5); Glucose 102 mg/dL (83-110); Lipase 64 U/L (8-78); Potassium 4.5 mmol/L (3.5-5.1); Protein, Total 6.2 g/dL (5.8-8.1); Sodium 130 mmol/L (136-145)
[2019-10-22] MEDS ORDERED: Pantoprazole 40 MG VIAL ONE (19:47)
--- NOTE | 2019-10-22 19:58 | PDOC.FPRHP ---
- History of Present Illness Chief Complaint: acute GI bleed History of Present Illness: Jose Joseph is an 89 year old M with a PMH of Parkinson's disease, CAD s/p stent X5, HTN, HLD who was transferred to [facility] ED from [facility] for acute GI bleed and downtrending Hg. Recently had hip surgery and had replacement and has been getting rehab at . He denies any fever, chills, chest pain, dyspnea, palpitations, abdominal pain, n/v/c/d. He did have another fall this afternoon. He is alert and oriented to person but no place or time. He initially appeared to have normal mentation until further discussion with pt revealing he is altered. ED Course: In the ED he was given NaCl 500 mls - Allergies/Adverse Reactions Allergies Allergy/AdvReac Type Severity Reaction Status Date / Time epinephrine Allergy Verified 10/02/19 20:30 hydrocodone bitartrate Allergy Verified 10/02/19 20:30 [From Vicodin] iodine Allergy Verified 10/02/19 20:30 propoxyphene HCl Allergy Verified 10/02/19 20:30 [From Darvon] Tetanus Vaccines and Toxoid Allergy Verified 10/02/19 20:30 [Tetanus Vaccines & Toxoid] tramadol Allergy Verified 10/02/19 20:30 - Home Medications Medication Instructions Recorded Confirmed Type Amlodipine Besylate [amLODIPine 2.5 mg PO BID 11/21/14 10/02/19 History Besylate] Lisinopril 40 mg PO DAILY 11/21/14 10/02/19 History Metoprolol Succinate 25 mg PO BID 11/21/14 10/02/19 History Multivitamin [Multi-Vitamin Daily] 1 tab PO DAILY 11/21/14 10/02/19 History Tamsulosin HCl [Flomax] 0.4 mg PO HS 11/21/14 10/02/19 History Ubidecarenone [Co Q-10] 100 mg PO DAILY 11/21/14 10/02/19 History Carbidopa/Levodopa [Sinemet CR] 1.5 tab PO TID 01/01/16 10/02/19 History Cyanocobalamin (Vitamin B-12) 2,500 mcg SL DAILY 01/01/16 10/02/19 History [Vitamin B-12] Docusate Sodium [Stool Softener] 100 mg PO BID 01/01/16 10/02/19 History Primidone 50 mg PO BID 05/18/19 10/02/19 History Alendronate Sodium [Fosamax] 70 mg PO Q7D 10/02/19 10/02/19 History Aspirin 81 mg PO DAILY 10/02/19 10/02/19 History Finasteride 5 mg PO DAILY 10/02/19 10/02/19 History Simvastatin 40 mg PO HS 10/02/19 10/02/19 History Carbidopa/Levodopa [Sinemet] 1.5 tab PO TID tab 10/10/19 Rx Ibuprofen [Motrin IB] 400 mg PO Q8H PRN tab 10/10/19 Rx - History PMHx: BPH, CAD, Parkinson's, HTN, HLD PSHx: unable to obtain due to mentation FHx: unable to obtain due to mentation Social: unable to obtain due to mentation - Review of Systems ROS unobtainable: due to mental status (Only specific ROS obtained due to mental status) General: denies: fever/chills, weight/appetite/sleep changes Eyes: denies: eye pain, vision changes Respiratory: denies: cough, shortness of breath Cardiovascular: denies: chest pain, palpitation, edema Gastrointestinal: denies: diarrhea, constipation Genitourinary: denies: dysuria, polyuria - Vital signs BP: 163/66 HR: 75 RR: 18 Tmax: 98.5 Pox: 100% on RA Wt: 107 kg - Physical Exam Constitutional: NAD, awake, alert and oriented HEENT: PERRLA, EOMI Neck: FROM, no JVD Chest: no-tender to palpation, no lesions Heart: RRR, normal S1/S2, no edema Lungs: CTAB, good air movement, no wheezing Abdomen: soft, non-tender, bowel sounds present Musculoskeletal: normal structure, normal tone Neurological: no focal deficit, CN II-XII intact Skin: no rash/lesions -Skin: poor capillary refill Heme/Lymphatic: no purpura, no petechia -Psychiatric: AAO x 2, pleasantly confused FMR H&P: Results - Labs Result Diagrams: 10/22/19 18:50 10/22/19 18:49 Lab results: WBC 8.3 thou/uL (4.8-10.8) 10/22/19 18:50 Hgb 8.2 g/dL (14.0-18.0) L 10/22/19 18:50 Hct 24.7 % (42.0-52.0) L 10/22/19 18:50 MCV 98.3 fL (78.0-98.0) H 10/22/19 18:50 Plt Count 544 thou/uL (130-400) H 10/22/19 18:50 Neutrophils % 73.3 % (42.0-75.0) 10/22/19 18:50 Sodium 130 mmol/L (136-145) L 10/22/19 18:49 Potassium 4.5 mmol/L (3.5-5.1) 10/22/19 18:49 Chloride 98 mmol/L (98-107) 10/22/19 18:49 Carbon Dioxide 23 mmol/L (23-31) 10/22/19 18:49 BUN 21 mg/dL (8.4-25.7) 10/22/19 18:49 Creatinine 0.84 mg/dL (0.7-1.3) 10/22/19 18:49 Glucose 102 mg/dL (83-110) 10/22/19 18:49 Calcium 8.2 mg/dL (7.8-10.44) 10/22/19 18:49 Total Bilirubin 0.6 mg/dL (0.2-1.2) 10/22/19 18:49 AST 18 U/L (5-34) 10/22/19 18:49 ALT 12 U/L (8-55) 10/22/19 18:49 Alkaline Phosphatase 149 U/L (40-110) H 10/22/19 18:49 Creatine Kinase 55 U/L (30-200) 10/22/19 18:49 B-Natriuretic Peptide 61.1 pg/mL (0-100) 10/22/19 18:50 Serum Total Protein 6.2 g/dL (5.8-8.1) 10/22/19 18:49 Albumin 3.4 g/dL (3.4-4.8) 10/22/19 18:49 Lipase 64 U/L (8-78) 10/22/19 18:49 - EKG Interpretation EKG: NSR, Left axis devation, RBBB, QT 474 - Radiology Interpretation Chest x-ray Status: image reviewed by me, report reviewed by me Additional comment: no acute abnormalities FMR H&P: A/P - Problem List (1) Acute anemia Current Visit: Yes Status: Acute Code(s): D64.9 - ANEMIA, UNSPECIFIED (2) Dyslipidemia Current Visit: No Status: Acute Code(s): E78.5 - HYPERLIPIDEMIA, UNSPECIFIED (3) BPH (benign prostatic hyperplasia) Current Visit: No Status: Chronic Code(s): N40.0 - BENIGN PROSTATIC HYPERPLASIA WITHOUT LOWER URINRY TRACT SYMP (4) CAD (coronary artery disease) Current Visit: No Status: Chronic Code(s): I25.10 - ATHSCL HEART DISEASE OF [place] CORONARY ARTERY W/O ANG PCTRS (5) HTN (hypertension) Current Visit: No Status: Chronic Code(s): I10 - ESSENTIAL (PRIMARY) HYPERTENSION Qualifiers: Hypertension type: essential hypertension Qualified Code(s): I10 - Essential (primary) hypertension (6) Parkinsons disease Current Visit: No Status: Chronic Code(s): G20 - PARKINSON'S DISEASE - Plan Pt is an 89 yo male here for: # Borderline macrocytic anemia with a component of acute blood loss Hx of a bloody bm at [facility]. FOBT positive in ED. Currently hemodynamically stable. - H/H in am - consult GI in am - start protonix 40 mg BID # UTI Paperwork from [facility] noted Ciprofloxacin 500 mg PO BID for a urinary tract infection discontinued on 10/24 - continue abx - repeat U/A, Cx pending # HTN - continue home meds # BPH - continue home meds # Constipation - Docusate prn # Insomnia - continue melatonin # Osteoporosis - aledronate qMonday Dispo: Admit to medical, inpatient VTE: SCDs Diet: HH Fluids: SL Code: DNR FMR H&P: Upper Level - Plan Date/Time: 10/22/191957 Frantz Gonzalez MD, have evaluated this patient and agree with findings/plan as outlined by pr internship resident. Pertinent changes/additions are listed here. Jose Joseph is an 89 year old M with a PMH of Parkinson's disease, CAD, HTN who was sent to [facility] by Dr. Burger from [facility] for acute GI bleed and downtrending hemoglobin. He developed weakness and had a bloody bowel movement at the CT. He recently had hospitalization for hip replacement after fracture and has been getting rehab. In the ED, patient was hypertensive in the 160s systolic, HR 80s, afebrile. Negative ROS, with exception of GI bleed. In the ED, patient was A&O X2 and was agitated at times. Labs showed Hg of 8.2. Dr. Burger stated that it had been downtrending over the last several weeks, around 11 a couple weeks ago. FOBT in ED was positive. He was given protonix and 1L NS in ED. Patient being admitted for symptomatic anemia. Will continue IV protonix and consult GI in the AM. Pt was being treated for UTI in [place], will continue antibiotics and reculture urine. Will continue patient's home medications for chronic medical conditions. Holding anticoagulation. Please see pr internship note above for full H&P, which I have reviewed and agree with.
[2019-10-22] MEDS ORDERED: Ondansetron PF 4 MG/2 ML Vial IVP PRN (22:25)
[2019-10-22] MEDS ORDERED: Ondansetron ODT 4 MG TAB SL PRN (22:25)
[2019-10-22] MEDS ORDERED: Sodium Chloride 0.9% 1,000 ML IV SCH (22:25)
[2019-10-22 22:27] VITALS: BMI 28.0
[2019-10-22] MEDS ORDERED: Pantoprazole 80 MG, Admixture Fee 1 EACH in Sodium Chloride 0.9% 100 ML IVPB SCH (22:30)
[2019-10-23] MEDS ORDERED: Alendronate Sodium 70 mg Tablet PO SCH (02:45)
[2019-10-23] MEDS: Cipro 250 MG TAB PO SCH ×2 (06:29→22:38)
[2019-10-23 06:32] LABS: #Eosinphils 0.1 thou/uL (0.0-0.7); #Monocytes 0.6 thou/uL (0.11-0.59); #Neutrophils 3.4 thou/uL (1.40-6.50); %Basophils 0.8 % (0.0-1.0); %Eosinophils 2.3 % (0.0-10.0); %Lymphocytes 19.4 % (21.0-51.0); %Neutrophils 65.5 % (42.0-75.0); Hemoglobin 7.9 g/dL (14.0-18.0); Mean Corpuscular HGB CONC 32.8 g/dL (32.0-36.0); Mean Corpuscular Hemoglobin 32.8 pg (27.0-31.0); Mean Platelet Volume 6.4 fL (7.4-10.4); Platelet Count 508 thou/uL (130-400); RBC Distribution Width 13.6 % (11.5-14.5); Red Blood Cell (RBC) Count 2.42 mill/uL (4.70-6.10); White Blood Cell (WBC) Count 5.2 thou/uL (4.8-10.8)
[2019-10-23 06:55] LABS: Anion Gap 11 mmol/L (10-20); BUN (Urea Nitrogen) 14 mg/dL (8.4-25.7); Calc. Creatinine Clearance 99 mL/min (70-130); Calcium 8.1 mg/dL (7.8-10.44); Carbon Dioxide 24 mmol/L (23-31); Chloride 103 mmol/L (98-107); Estimated GFR-MDRD Greater than 90; Glucose 94 mg/dL (83-110); Potassium 4.2 mmol/L (3.5-5.1); Sodium 134 mmol/L (136-145)
--- NOTE | 2019-10-23 07:08 | PDOC.FM ---
Addendum entered and electronically signed by David Garibay DO 10/23/19 09:15 : Due to patient's history of CAD and symptomatic anemia, goal hgb would be 9, especially in the setting of possible endoscopic procedure. Will plan to transfuse 1 unit PRBC and get a 4 hr post H&H Original Note: - Subjective Subjective: Pt denies any complaints this morning. Did note increasing fatigue over past several days. Recalls a bloody bowel movement at [facility], no further since then. Denies N/V, near syncope. - Objective Vital Signs & Weight: Vital Signs (12 hours) Temp Pulse Resp BP Pulse Ox 10/23/19 04:59 98.0 F 70 16 156/69 H 96 10/22/19 22:45 98.7 F 77 18 177/76 H 100 10/22/19 22:35 100 10/22/19 22:26 98.7 F 77 17 177/76 H 100 Weight Weight 99.337 kg Result Diagrams: 10/24/19 06:28 10/24/19 06:28 Phys Exam - Physical Examination Constitutional: NAD HEENT: moist MMs pale palpebral conjunctiva Neck: supple Respiratory: clear to auscultation bilateral Cardiovascular: RRR Gastrointestinal: soft, non-tender, no distention Musculoskeletal: no edema, pulses present Neurological: moves all 4 limbs Psychiatric: normal affect Deviation from normal: A&O x2 Deviation from normal: left lateral thigh bruising s/p hip surgery, pale skin Dx/Plan - Plan Plan: Anemia with of acute blood loss Hx of a bloody bm at [facility]. FOBT positive in ED. Currently hemodynamically stable. - Hgb trend since arrival: 8.2 -> 7.9 - Will plan to consult GI today for possible endoscopic procedure, Dr. Eldridge software applications designer - Protonix 40 mg BID UTI Paperwork from [facility]term noted Ciprofloxacin 500 mg PO BID for a urinary tract infection discontinued on 10/24 - continue abx - repeat U/A, Cx pending HTN - continue home meds BPH - continue home meds Constipation - Docusate prn Insomnia - continue melatonin Osteoporosis - aledronate qMonday VTE: SCDs Diet: HH Fluids: SL Code: DNR Dispo: Medical inpt for hgb monitoring and addressing cause of acute blood loss anemia. Addendum - Attending - Attending Attestation Date/Time: 10/24/192106 I personally evaluated the patient and discussed the management with Dr. Garibay on 10/23/19 I agree with the History, Examination, Assessment and Plan documented above with any addition or exceptions noted below- Patient without complaints. No further evidence of bleeding. Afebrile VSS. A/P: 1) Hematchezia- will transfuse due to patient's h/o AD. Continue to monitor H/H; GO consulted. 2) HTN- continue home meds.
[2019-10-23 07:22] LABS: Bacteria/HPF None Seen HPF (None Seen); Bilirubin Negative (Negative); Blood, Urine Negative (Negative); Clarity Clear (Clear); Glucose, Urine (Dipstick) Normal (Negative); Leukocyte 75 Leu/uL (Negative); Nitrite Negative (Negative); Protein, Urine (Dipstick) Negative (Neg-Trace); RBC/HPF 0-3 HPF (0-3); Squamous Epithelial None Seen HPF (0-3); Urobilinogen Normal mg/dL (Less than 2)
[2019-10-23] MEDS: Ubidecarenone 50 MG CAP PO SCH (10:25)
[2019-10-23] MEDS: Carbidopa/Levodopa CR 50-200 mg Tablet PO SCH ×3 (10:25→22:30)
[2019-10-23] MEDS: Cyanocobalamin (Vitamin B-12) 1,000 MCG TAB PO SCH (10:26)
[2019-10-23] MEDS: Finasteride 5 MG TAB PO SCH (10:27)
[2019-10-23] MEDS: Lisinopril 20 MG TAB PO SCH (10:27)
[2019-10-23] MEDS: Docusate 100 MG CAP PO SCH ×2 (10:27→21:00)
[2019-10-23] MEDS: Multivit, Therapeutic 1 TAB PO SCH (10:27)
[2019-10-23] MEDS: Amlodipine 5 MG TAB PO SCH ×2 (10:28→22:31)
[2019-10-23] MEDS ORDERED: GoLYTELY 4,000 ml Bottle PO SCH (17:00)
--- NOTE | 2019-10-23 21:10 | CON ---
DATE OF CONSULTATION: 10/23/2019 REASON FOR CONSULTATION: GI bleeding, anemia due to blood loss. HISTORY OF PRESENT ILLNESS: Mr. Jose Joseph is a very pleasant 89-year-old male, hospitalized from the [facility] because of GI bleeding. He is not very sure he has any black tarry stool or fresh blood. Apparently, the nursing staff in the [facility] saw the bleeding and he was transferred here. Also blood count had been dropping down and he has been transfused. The patient was hospitalized here in September of 2019, with a fracture of the left hip. He underwent surgery and on that admission he has had a normal CBC. The patient was found to be anemic on arrival here. The admitting CBC showed anemia with a hemoglobin 8.2, hematocrit 24.7. They dropped to 7.9 today. The MCV is 100. During the last admission in September 2019, he had normal CBC. The patient denies abdominal pain, nausea, or vomiting. Denies any dyspepsia. Denies dysphagia or odynophagia. His bowel movements are fairly regular. He is not sure if he saw some blood , but was seen by the nursing staff in the [facility]. Since arrival to the hospital, he has had no more stool. He has been transfused. He is more upset about not able to eat and he really wants to have something to eat or drink. I explained to him that he will need a colonoscopy because of bleeding, he still insisted of having a regular diet. Finally, I was able to convince him to have a clear liquid diet and get the prep for tomorrow's colonoscopy. The patient tells me he had a colonoscopy a few years ago and he cannot tell me how long ago and who performed the procedure. Going on [employer], I could not find any colonoscopy report in the [employer]. He had no relevant history. MEDICAL ILLNESSES: 1. Parkinson disease. 2. Recent hip fracture surgery in September of 2019. 3. Hypertension. 4. Hyperlipidemia. 5. Coronary artery disease, status post stent placement in the past. ALLERGIES: MULTIPLE INCLUDING EPINEPHRINE, HYDROCODONE, IODINE, PROPOXYPHENE, TETANUS VACCINES, TRAMADOL. SOCIAL HISTORY: The patient does not smoke or drink alcohol. PAST MEDICAL HISTORY: 1. Prostatic hypertrophy. 2. Coronary artery disease. 3. Parkinson disease. 4. Hypertension. 5. Hyperlipidemia. FAMILY HISTORY: There is no family history of any cancer or any heart attack. MEDICATIONS: List reviewed, which included; 1. Sinemet. 2. Vitamin B12. 3. Docusate. 4. Primidone. 5. Fosamax. 6. Aspirin. 7. Simvastatin. 8. Ibuprofen. REVIEW OF SYSTEMS: A 10-point system reviewed; [facility]: No history of TIA. No history of any syncope. No history of any seizure disorder. HEAD: No chronic headache. EYES: No impaired vision. No diplopia. EARS: No hearing loss. THROAT: No sore throat. NECK: No stiffness or any pain. LUNGS: No chronic coughing. No hemoptysis. No dyspnea. CARDIOVASCULAR: No chest pain. No palpitation. No dyspnea, orthopnea, or PND. GI: No abdominal pain. No nausea. No vomiting. GENITOURINARY: History of frequency of urination. No hematuria. NEUROMUSCULAR: Nonrelevant. PHYSICAL EXAMINATION: GENERAL: Revealed a very pleasant, elderly, male, appears very comfortable. He is awake, alert, communicative. He is somewhat annoyed as he is not able to eat anything. He insists on having a regular diet. VITAL SIGNS: Afebrile. Pulse is 68, blood pressure 152/69. HEENT: Conjunctivae are clear. NECK: Supple. No adenitis or thyromegaly noted. CARDIOVASCULAR: Normal heart sounds. LUNGS: Clear to auscultation. ABDOMEN: Soft. Abdomen is nondistended. Abdomen is nontender. No organomegaly. No masses. EXTREMITIES: Reveal no edema. LABORATORY DATA: On admission showed WBC 8300, hemoglobin 8.2, hematocrit 24.7 , MCV 98.3, platelet count 544,000, polymorphs 73, lymphocytes 14. Today, the blood count dropped slightly to 7.9, MCV 100. His Chem-7 is actually normal. He had normal lytes. BUN is 21, today dropping to 14. Creatinine 0.74. Bilirubin 0.6, AST 18, ALT 12, alkaline phosphatase 149, albumin 3.4. CLINICAL IMPRESSION: 1. An 89-year-old male with gastrointestinal bleeding, most likely lower gastrointestinal bleeding. He really is not sure he has seen any blood in the stool. Apparently, this was noticed by the nursing staff and his blood count has been dropping down. He had a left hip fracture surgery a month ago and at that time, he had normal CBC. He denied abdominal pain, nausea, or vomiting. The etiology of bleeding could very well be some bleeding from diverticular disease or possibly angiodysplasia . 2. Anemia due to blood loss. 3. Hypertension. 4. Hyperlipidemia. 5. Recent left hip fracture surgery. 6. Coronary artery disease, status post stent placement. RECOMMENDATIONS: 1. Clear liquid diet. 2. Prep the patient for colonoscopy and EGD tomorrow. This will be done by on- call sound engineering technician. Job ID: [id number] [facility]ITAL[facility]ic[facility]
[2019-10-23] MEDS: Atorvastatin Calcium 20 MG TAB PO SCH (22:29)
[2019-10-23] MEDS: Tamsulosin HCl 0.4 MG CAP PO SCH (22:29)
[2019-10-23] MEDS: Pantoprazole 40 MG VIAL IVP SCH (22:34)
[2019-10-24] MEDS: Cipro 250 MG TAB PO SCH ×2 (06:37→19:54)
[2019-10-24 06:53] LABS: Hemoglobin 8.7 g/dL (14.0-18.0); Mean Corpuscular HGB CONC 33.2 g/dL (32.0-36.0); Mean Corpuscular Hemoglobin 32.3 pg (27.0-31.0); Mean Corpuscular Volume 97.5 fL (78.0-98.0); Mean Platelet Volume 6.7 fL (7.4-10.4); Platelet Count 470 thou/uL (130-400); RBC Distribution Width 14.2 % (11.5-14.5); Red Blood Cell (RBC) Count 2.69 mill/uL (4.70-6.10); White Blood Cell (WBC) Count 4.9 thou/uL (4.8-10.8)
[2019-10-24 07:12] LABS: Anion Gap 11 mmol/L (10-20); BUN (Urea Nitrogen) 8 mg/dL (8.4-25.7); Calc. Creatinine Clearance 108 mL/min (70-130); Carbon Dioxide 22 mmol/L (23-31); Chloride 103 mmol/L (98-107); Estimated GFR-MDRD Greater than 90; Glucose 89 mg/dL (83-110); Potassium 3.9 mmol/L (3.5-5.1); Sodium 132 mmol/L (136-145)
[2019-10-24 08:32] LABS: Band 2 % (5-11); Eosinophils 2 % (0-10); Lymphocytes 20 % (21-51); MDiff Complete? YES; Monocytes 11 % (0-10); Neutrophil 65 % (42-75); Platelet Morphology Comment Appears Increased; Polychromasia SLIGHT = 2-3 cells (100X) (0-2/hpf)
[2019-10-24] MEDS ORDERED: Ketamine 50 MG/ML (10ML VIAL) ONE (09:52)
[2019-10-24] MEDS ORDERED: Midazolam HCl 2 mg/2 ml Vial ONE (09:52)
--- NOTE | 2019-10-24 10:00 | PDOC.FM ---
- Subjective Subjective: Pt is awake and alert this morning. He denies any abdominal pain, n/v. Does note some mild diarrhea. Went over the plan of care and upcoming procedures today and pt expressed understanding and agreed. - Objective Vital Signs & Weight: Vital Signs (12 hours) Temp Pulse Resp BP BP Pulse Ox 10/24/19 07:26 98.0 F 63 16 173/71 H 98 10/24/19 03:01 97.8 F 70 18 137/60 97 10/24/19 00:00 99.0 F 69 18 142/64 H 98 10/23/19 22:31 73 Weight Weight 99.337 kg I&O: 10/23/19 10/24/19 10/25/19 06:59 06:59 06:59 Intake Total 350 Output Total 880 Balance -530 Result Diagrams: 10/24/19 06:28 10/24/19 06:28 Phys Exam - Physical Examination Constitutional: NAD HEENT: moist MMs, sclera anicteric Respiratory: clear to auscultation bilateral Cardiovascular: RRR Gastrointestinal: soft, non-tender, no distention Musculoskeletal: no edema Neurological: non-focal, moves all 4 limbs Psychiatric: normal affect Deviation from normal: A&O to person and place Skin: no rash Deviation from normal: Pale Dx/Plan - Plan Plan: Anemia with of acute blood loss Hx of a bloody bm at [facility]. FOBT positive in ED. Currently hemodynamically stable. - Hgb trend since arrival: 8.2 -> 7.9 - (1 unit transfusion) -> 8.7 - Seen by Dr. Eldridge yesterday, pt to have EGD and colonoscopy today by online merchant GI physician - Protonix 40 mg BID UTI Paperwork from [facility] noted Ciprofloxacin 500 mg PO BID for a urinary tract infection discontinued on 10/24 - continue abx - repeat U/A, Cx pending HTN - continue home meds BPH - continue home meds Constipation - Docusate prn Insomnia - continue melatonin Osteoporosis - aledronate qMonday VTE: SCDs Diet: HH Fluids: SL Code: DNR Dispo: Medical inpt for hgb monitoring and endoscopic evaluation today. Addendum - Attending - Attending Attestation Date/Time: 10/24/192109 I personally evaluated the patient and discussed the management with Dr. Klocke I agree with the History, Examination, Assessment and Plan documented above with any addition or exceptions noted below - Patient without complaints. Tolerated diet after procedure. Afebrile VSS. A/P: 1) Duodenal ulcer on EG but no evidence of high risk sigmata; continue PPI and monitor H/H; appreciate GI assistance, 2) HTN- stable; 3) Deconditioing- plan to trasnfer back to skill; case management working on authorization.
[2019-10-24] MEDS ORDERED: Ondansetron HCl/PF 4 MG/2 ML Vial IVP PRN (11:32)
[2019-10-24] MEDS: Pantoprazole 40 MG VIAL IVP SCH ×2 (12:51→22:57)
[2019-10-24] MEDS: Amlodipine 5 MG TAB PO SCH ×2 (12:51→19:55)
[2019-10-24] MEDS: Multivit, Therapeutic 1 TAB PO SCH (12:52)
[2019-10-24] MEDS: Cyanocobalamin (Vitamin B-12) 1,000 MCG TAB PO SCH (12:52)
[2019-10-24] MEDS: Finasteride 5 MG TAB PO SCH (12:52)
[2019-10-24] MEDS: Carbidopa/Levodopa CR 50-200 mg Tablet PO SCH ×3 (12:53→19:55)
[2019-10-24] MEDS: Docusate 100 MG CAP PO SCH ×3 (12:54→19:54)
[2019-10-24] MEDS: Lisinopril 20 MG TAB PO SCH (12:54)
[2019-10-24] MEDS: Ubidecarenone 50 MG CAP PO SCH (12:56)
[2019-10-24] MEDS ORDERED: PROPOFOL 200 MG/20 ML VIAL ONE (15:49)
[2019-10-24] MEDS: Acetaminophen 325 MG TAB PO PRN (16:29)
--- NOTE | 2019-10-24 17:53 | OP ---
DATE OF PROCEDURE: 10/24/2019 PROCEDURES PERFORMED: Esophagogastroduodenoscopy with biopsy, colonoscopy with polypectomy and biopsies. INDICATION FOR PROCEDURE: Anemia, questionable hematochezia versus melena observed in jail. DESCRIPTION OF PROCEDURE: After the risks and benefits of the procedure were explained to the patient and the patient's surrogate (the patient's ) including risks of bleeding, infection, perforation, reactions to anesthesia, aspiration, and/or pain, informed consent was obtained. The patient was then taken to the endoscopy suite, where he was placed in the left lateral decubitus position, followed by deep sedation via propofol and ketamine via anesthesia support. Once adequate sedation was achieved, the standard gastroscope was introduced into the mouth with intubation of the esophagus, stomach, and the proximal small intestines with the findings listed below. The patient tolerated this portion of the procedure well with no immediate perioperative complications. Upon conclusion of the procedure, all equipment was removed from the patient and the bed was rotated 180 degrees in anticipation of the colonoscopy. Once in adequate position, a digital rectal examination was performed followed by introduction of the standard colonoscope, which was then advanced to the terminal ileum with some difficulty due to poor colonic prep and significant looping of the scope that required manual abdominal pressure to facilitate passage of the scope. The end quality of the prep was fair, being adequate to evaluate lesions greater than 6 mm in size. The patient tolerated the procedure well with no immediate perioperative complications. Upon conclusion of the procedure, all equipment was removed from the patient. He was transferred to PACU in satisfactory condition. EGD FINDINGS: Esophagus: Normal-appearing mucosa was seen in the esophagus, stomach, and the proximal small intestines. There was no evidence of erosions, ulcerations, mass lesions, or active/recent bleeding. Stomach: Normal-appearing mucosa was seen in the gastric cardia, fundus, body, greater curvature, antrum, and incisura. There was no evidence of erosions, ulcerations, mass lesions, or active/recent bleeding. However, random biopsies were taken from the antrum, incisura, and body for evaluation of possible H pylori. Duodenum: A 4 to 5 mm crater to clean based ulceration was seen in the duodenal bulb along the anterior wall, but did not exhibit any evidence of active or recent bleeding. It also did not display any high-risk stigmata of recent bleeding. Otherwise, there was some mild increased mucosal erythema associated with the ulceration, but otherwise normal in appearance in this region. Normal-appearing mucosa was then seen in the second portion of the duodenum and extending into the third portion of the duodenum. There was no evidence of erosions, mass lesions, or active/recent bleeding. IMPRESSION: 1. 4 to 5 mm clean based cratered duodenal ulceration without evidence of recent bleeding or high-risk stigmata of bleeding now status post biopsies in the stomach for H pylori evaluation. 2. Otherwise, normal upper endoscopy. COLONOSCOPY FINDINGS: Digital rectal exam: Small external hemorrhoids were seen on external examination with no abnormalities palpated on digital rectal exam. Colon findings: Normal-appearing mucosa was seen within the terminal ileum as well as at the ileocecal valve and appendiceal orifice. Normal-appearing mucosa was then seen in the cecum, ascending, and transverse colon. A 4 to 5 mm pedunculated polyp was seen in the descending colon and completely removed with snare cautery polypectomy. It was retrieved and placed in a specimen jar for further evaluation. Of note, the prep in the patient was initially fair and interfered with adequate visualization of the colon. Attempts at aggressive irrigation and suctioning only again yielded a fair prep with lesions less than 6 mm in size possibly missed. Scattered small diverticula were seen in the sigmoid colon, but did not have any associated erythema, ulceration, or luminal narrowing associated with this condition. However, in the rectum, there were multiple ulcerations, some being linear and others being ovoid in shape. These ulcerations measured anywhere between 4 and 12 to 15 mm in size and exhibited increased friability with the passage of the scope. The edges of the ulceration did not exhibit a cratered appearance, but rather a whitish ulcerated appearance with polypoid appearing mucosa surrounding these lesions. Multiple biopsies were taken from these ulcerations themselves and placed in a specimen jar for further evaluation. On retroflexion, 2 small ulcerations were also seen, but no evidence of internal hemorrhoids. IMPRESSION: 1. 4 to 5 mm pedunculated polyp seen in the descending colon, status post hot snare. 2. Inadequate prep for evaluation of small mucosal lesions less than 6 mm in size, but adequate for evaluation of bleeding and large mucosal lesions. 3. Mild sigmoid diverticulosis. 4. Multiple rectal ulcerations measuring between 4 and 12 to 15 mm in size, status post biopsies (stercoral colitis versus solitary rectal ulcer syndrome versus malignancy versus ischemia). RECOMMENDATIONS: 1. We will continue to trend the patient's H and H and transfuse as necessary to maintain an H and H of 7/21. 2. Continue to monitor clinically for signs of active GI bleeding. 3. Would follow up on the biopsy results today with further care guided by pathology report. 4. Given a possible ischemic etiology, would maintain normotensive pressures and adequate hydration. 5. We will place the patient on MiraLAX in the post colonoscopy setting if he is having increased constipation. 6. If the gastric biopsies are positive for H pylori, I would recommend placing the patient on quadruple therapy for eradication of the bacterium. We will continue to follow peripherally at this time. Please call with any questions. Job ID: [id number]
[2019-10-24] MEDS: Tamsulosin HCl 0.4 MG CAP PO SCH (19:55)
[2019-10-24] MEDS: Atorvastatin Calcium 20 MG TAB PO SCH (19:56)
[2019-10-25] MEDS: Acetaminophen 325 MG TAB PO PRN (02:56)
[2019-10-25] MEDS: Cipro 250 MG TAB PO SCH (06:13)
[2019-10-25 06:30] LABS: #Eosinphils 0.2 thou/uL (0.0-0.7); #Lymphocytes 1.2 thou/uL (1.20-3.40); #Monocytes 0.7 thou/uL (0.11-0.59); #Neutrophils 4.4 thou/uL (1.40-6.50); %Basophils 0.5 % (0.0-1.0); %Eosinophils 2.9 % (0.0-10.0); %Lymphocytes 17.8 % (21.0-51.0); %Monocytes 10.7 % (0.0-10.0); %Neutrophils 68.1 % (42.0-75.0); Hemoglobin 9.7 g/dL (14.0-18.0); Mean Corpuscular HGB CONC 33.7 g/dL (32.0-36.0); Mean Corpuscular Hemoglobin 32.6 pg (27.0-31.0); Mean Corpuscular Volume 96.7 fL (78.0-98.0); Mean Platelet Volume 6.4 fL (7.4-10.4); Platelet Count 478 thou/uL (130-400); Red Blood Cell (RBC) Count 2.98 mill/uL (4.70-6.10); White Blood Cell (WBC) Count 6.5 thou/uL (4.8-10.8)
[2019-10-25 06:41] LABS: Anion Gap 13 mmol/L (10-20); BUN (Urea Nitrogen) 7 mg/dL (8.4-25.7); Calc. Creatinine Clearance 96 mL/min (70-130); Calcium 8.2 mg/dL (7.8-10.44); Carbon Dioxide 17 mmol/L (23-31); Chloride 104 mmol/L (98-107); Estimated GFR-MDRD Greater than 90; Glucose 89 mg/dL (83-110); Potassium 4.1 mmol/L (3.5-5.1); Sodium 130 mmol/L (136-145)
--- NOTE | 2019-10-25 07:31 | PDOC.FM ---
- Subjective Subjective: Pt was restless and intermittently agitated through the night requiring seroquel x2. This morning is awake, alert, and pleasant. teletype technician at bed side agreed he is doing better today. Pt informed of endoscopy findings again as well as his recent blood work. Plan to return to [facility]. - Objective Vital Signs & Weight: Vital Signs (12 hours) Temp Pulse Resp BP BP Pulse Ox 10/25/19 00:00 98.5 F 74 18 170/75 H 96 10/24/19 19:55 78 166/64 H Weight Weight 99.337 kg I&O: 10/24/19 10/25/19 10/26/19 06:59 06:59 06:59 Intake Total 350 Output Total 880 Balance -530 Result Diagrams: 10/25/19 06:18 10/25/19 06:18 Phys Exam - Physical Examination Constitutional: NAD HEENT: moist MMs Pale conjunctiva No respiratory distress Cardiovascular: RRR Gastrointestinal: soft, non-tender Neurological: non-focal, moves all 4 limbs Psychiatric: normal affect Deviation from normal: Baseline orientation this a.m. Dx/Plan - Plan Plan: Anemia - Likely 2/2 rectal ulcer from presumed stercoral colitis - Hgb trend since arrival: 8.2 -> 7.9 - (1 unit transfusion) -> 8.7 -> 9.7 - Dr. Lantigua, GI, EGD and colonoscopy yesterday showing duodenal ulcer without stigmata of bleeding. 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 Pt now has stable hgb and likely source of bleeding. Awaiting placement per CM. Addendum - Attending - Attending Attestation Date/Time: 10/25/191853 I personally evaluated the patient and discussed the management with Dr. Garibay I agree with the History, Examination, Assessment and Plan documented above with any addition or exceptions noted below- Patient without complaints. Had some agitation during the night. Afebrile VSS. A/P: 1) Gi bleed- H/H stable. 2) Recent hip fx- repeat xray after fall with no displacement of hardware. Transfer back to SNF today.
[2019-10-25 08:34] VITALS: BP 108/64; TEMP 98.3
[2019-10-25] MEDS ORDERED: Amlodipine 5 MG TAB PO SCH (09:00)
[2019-10-25] MEDS ORDERED: Polyethylene Glycol 3350 17 GM Packet PO SCH (09:00)
[2019-10-25] MEDS: Carbidopa/Levodopa CR 50-200 mg Tablet PO SCH ×2 (09:17→16:08)
[2019-10-25] MEDS: Docusate 100 MG CAP PO SCH (09:18)
[2019-10-25] MEDS: Finasteride 5 MG TAB PO SCH (09:18)
[2019-10-25] MEDS: Cyanocobalamin (Vitamin B-12) 1,000 MCG TAB PO SCH (09:18)
[2019-10-25] MEDS: Lisinopril 20 MG TAB PO SCH (09:19)
[2019-10-25] MEDS: Pantoprazole 40 MG VIAL IVP SCH (09:20)
[2019-10-25] MEDS: Multivit, Therapeutic 1 TAB PO SCH (09:20)
[2019-10-25] MEDS: Ubidecarenone 50 MG CAP PO SCH (09:21)
--- NOTE | 2019-10-25 13:12 | RAD ---
LEFT HIP 3 VIEWS: INDICATION: Postop followup. COMPARISON: 10/02/2019. FINDINGS/IMPRESSION: The trochanteric and intratrochanteric fracture noted on the prior exam has been fixated with intrame dullary asya and pin. Components and fragments appear in appropriate alignment. POS: AH
--- NOTE | 2019-10-26 14:52 | EKG ---
Test Reason : Blood Pressure : / mmHG Vent. Rate : 072 BPM Atrial Rate : 072 BPM P-R Int : 184 ms QRS Dur : 194 ms QT Int : 474 ms P-R-T Axes : 034 -64 -14 degrees QTc Int : 519 ms Normal sinus rhythm Left axis deviation Right bundle branch block Minimal voltage criteria for LVH, may be normal variant Septal infarct , age undetermined Abnormal ECG Confirmed by ANH ARITA, PHONG ([id number]), news copy editor LIV YU ([id number]) on 10/26/2019 2:52:37 PM Referred By: ANH Confirmed By:PHONG KAMARA MD
--- NOTE | 2019-10-27 11:23 | DIS ---
DATE OF ADMISSION: 10/22/2019 DATE OF DISCHARGE: 10/25/2019 ADMITTING ATTENDING: Marcelino Pink MD. DISCHARGE ATTENDING: Alejandra Powell MD. RESIDENT: David Garibay DO. CONSULTS: Gastroenterology, Dr. Bonnie Eldridge, Dr. Lantigua. PROCEDURES: 1. EGD and colonoscopy on 10/24/[address] Stephan Lantigua. Impression: EGD 4 to 5 mm clean based crater duodenal ulceration without evidence of recent bleeding or high-grade risk of stigmata of bleeding. Now status post biopsies in the stomach for H. pylori. Upper endoscopy otherwise normal. 2. Colonoscopy impression: A 4 to 5 mm pedunculated polyp seen in the descending colon, status post hot snare. Inadequate prep for evaluation of small mucosal lesions less than 6 mm in size, but adequate for evaluation of bleeding. No enlarged mucosal lesions. Mild sigmoid diverticular diverticulosis. Multiple rectal ulcerations measuring 4-12 to 15 mm in size, status post biopsies. Differential for radiology is stercoral colitis versus, solitary rectal ulcer syndrome versus malignancy versus ischemia. IMAGIN. Chest x-ray, 10/22/2019. Impression: No acute cardiopulmonary process. 2. Hip x-ray, 10/25/2019. Impression: Trochanteric and intratrochanteric fracture noted on prior exam has been fixated with intramedullary asya and pin, components and fragments appear in appropriate alignment. PRIMARY DIAGNOSIS: Symptomatic anemia secondary to acute gastrointestinal blood loss. SECONDARY DIAGNOSES: 1. Dementia. 2. Urinary tract infection. 3. Hypertension. 4. Recent left hip fracture. DISCHARGE MEDICATIONS: 1. Multivitamin daily. 2. CoQ10 daily. 3. Tamsulosin 0.4 mg at bedtime. 4. Metoprolol succinate 25 mg b.i.d. 5. Lisinopril 40 mg daily. 6. Amlodipine 5 mg p.o. b.i.d. 7. Vitamin B12 2500 mcg daily. 8. Carbidopa levodopa 1.5 t.i.d. 9. Docusate 100 mg p.o. b.i.d. 10. Primidone 50 mg b.i.d. 11. Finasteride 5 mg daily. 12. Alendronate 70 mg p.o. q.7 days. 13. Simvastatin 40 mg at bedtime. 14. Aspirin 81 mg daily. DISCONTINUED MEDICATION: Amlodipine 2.5 mg p.o. b.i.d. HISTORY OF PRESENT ILLNESS AND HOSPITAL COURSE: An 89-year-old male with past medical history of Parkinson's disease, dementia and coronary artery disease status post stent x5, was transferred to the [facility] ED from [facility] due to acute GI bleed and downtrending hemoglobin. Recent history is significant for a hip surgery and replacement a few weeks ago and the patient had subsequently been receiving rehab at [facility]. Throughout his stay, the patient had been experiencing problems with dropping hemoglobin, but had mostly been stable and asymptomatic. However, recently they noted that the patient's hemoglobin was dropping to severe range and he was developing symptoms. They also noted the patient had a bloody melena at the prison, prompting them to seek further workup. ED workup was positive for a FOBT test. The patient was admitted to the hospital for gastroenterology consultation and evaluation. He was started on Protonix 40 mg b.i.d. Upon arrival to the hospital, patient was very confused and not cooperating. After speaking in the prison, it has been noted that the patient had been experiencing similar episodes of this nightly that were consistent with . Following morning, the patient was much more agreeable to the plan and agreed to take his medications as prescribed. Dr. Eldridge was consulted for gastroenterology evaluation. He instructed us to put the patient as n.p.o. and prep him for EGD and colonoscopy the following day by the on-call GI physician. Next day, the patient had an EGD and colonoscopy by Dr. Lantigua with findings as above. Dr. Lantigua afterwards recommended that the patient remain on a consistent bowel regimen to prevent chronic constipation and decrease risk for stercoral colitis. Specimens submitted from his operations are still pending path results at this time. Prior to discharge upon request from patient's PCP, Dr. Burger, a left hip x-ray was performed due to report of a fall prior to arrival to the hospital. This hip x-ray was normal, consistent with postoperative changes. The patient was subsequently transferred back to [facility] for continued rehab and monitoring of his hemoglobin. The patient did receive 1 transfusion during his stay the day prior to his endoscopy. Pre-transfusion hemoglobin was 7.9 and post transfusion hemoglobin was 8.7. Discharge hemoglobin was 9.7. DISCHARGE INSTRUCTIONS: Disposition: Return to [facility]. Diet: Heart healthy. Activity: As tolerated. Followup: PCP, Dr. Burger within 3-7 days. Job ID: [id number]
== END 2019-10-25 17:13 | DRG 394 ==
LOC: ERS 18:12 → T4-A 19:54
PROVIDERS: ADMIT Family Medicine; ATTEND Family Medicine
PROC: 30233N1 Transfusion of Nonautologous Red Blood Cells into Peripheral Vein, Percutaneous Approach (ICD-10-PCS; 2019-10-23)
PROC: 0DB68ZX Excision of Stomach, Via Natural or Artificial Opening Endoscopic, Diagnostic (ICD-10-PCS; principal; 2019-10-24)
PROC: 0DBM8ZZ Excision of Descending Colon, Via Natural or Artificial Opening Endoscopic (ICD-10-PCS; 2019-10-24)
PROC: 0DBP8ZX Excision of Rectum, Via Natural or Artificial Opening Endoscopic, Diagnostic (ICD-10-PCS; 2019-10-24)
DX: K62.6 Ulcer of anus and rectum (principal); D62 Acute posthemorrhagic anemia; N39.0 Urinary tract infection, site not specified; G20 Parkinson's disease; I25.10 Atherosclerotic heart disease of native coronary artery without angina pectoris; I10 Essential (primary) hypertension; E78.5 Hyperlipidemia, unspecified; N40.0 Benign prostatic hyperplasia without lower urinary tract symptoms; G47.00 Insomnia, unspecified; M81.0 Age-related osteoporosis without current pathological fracture; R53.81 Other malaise; K63.5 Polyp of colon; K59.09 Other constipation; K26.9 Duodenal ulcer, unspecified as acute or chronic, without hemorrhage or perforation; K57.30 Diverticulosis of large intestine without perforation or abscess without bleeding; F02.80 Dementia in other diseases classified elsewhere, unspecified severity, without behavioral disturbance, psychotic disturbance, mood disturbance, and anxiety; Z95.5 Presence of coronary angioplasty implant and graft; Z91.041 Radiographic dye allergy status; Z88.7 Allergy status to serum and vaccine; Z79.82 Long term (current) use of aspirin; Z88.8 Allergy status to other drugs, medicaments and biological substances
CPT/HCPCS: 36415; 36430; 71045; 80048; 80053; 81001; 82274; 82550; 83690; 83880; 85025; 85610; 85730; 86850; 86900; 86901; 87086; 88305; 88312; 88341; 88342; 93005; 96374; C9113; J2250; J2704; J3490; P9016

== ENCOUNTER 2019-12-31 05:59 | Emergency (ER) | payer MEDICARE ==
[2019-12-31] MEDS ORDERED: Acetaminophen 500 MG TAB ONE (06:18)
--- NOTE | 2019-12-31 08:38 | RAD ---
LEFT KNEE 4 VIEWS: Date: 12/31/2019 INDICATION: History of left knee trauma. COMPARISON: None. 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 Prosthetic components project in the expected position. There is diffuse osteopenia. There are scattered vascular calcifications. No definite displaced fracture is evident. IMPRESSION: Left total knee arthroplasty without evidence of acute osseous abnormality. POS: BH
== END 2019-12-31 07:05 ==
LOC: ERS 05:59
DX: M25.562 Pain in left knee (principal); G20 Parkinson's disease; I10 Essential (primary) hypertension; E78.5 Hyperlipidemia, unspecified; W19.XXXA Unspecified fall, initial encounter

== ENCOUNTER 2020-04-12 22:56 | Emergency (ER) | payer MEDICARE ==
[2020-04-13] MEDS ORDERED: Acetaminophen 500 MG TAB ONE (03:26)
--- NOTE | 2020-04-13 08:07 | CT ---
PRELIMINARY REPORT/[facility]/EMERGENCY AFTER HOURS PROCEDURE EXAM: CT Pelvis Without Intravenous Contrast. CLINICAL HISTORY: RT HIP PAIN TECHNIQUE: Axial computed tomography images of the pelvis without intravenous contrast. CONTRAST: None. COMPARISON: None provided. FINDINGS: HIP JOINTS: No dislocation. Moderate joint space narrowing and osteophytosis of the right hip. Fixation hardwar e is seen in the proximal left femur traversing a nonunion fracture at the base of the left femoral neck with callus formation and sclerosis. The hardware is intact. BONES: No acute fracture or focal osseous lesion. No suspicious focal osseous lesions. The bones are osteop enic. Moderate joint space narrowing and osteophytosis of the bilateral SI joints. Fusion hardware in the lower cervical spine with laminectomies. Multilevel degenerative disc disease. SOFT TISSUES: The pelvic viscera are unremarkable. No fluid collection, hematoma or mass. No radiopaque foreign bod y or soft tissue gas. Atherosclerosis. Diffuse bladder wall thickening. The prostate and seminal vesicles are absent. Colonic diverticulosis. No evidence of diverticulitis. Mild bilateral hydrone phrosis. IMPRESSION: No acute abnormality. 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 Intact fixation hardware traversing nonunion fracture at the base of the left femoral neck. ELECTRONICALLY SIGNED BY: Richard Cline MD Apr 13, 2020 3:10:11 AM SOCIAL MEDIA CAMPAIGN MANAGER This report is intended for review by the ordering physician only, in accordance of law. If you recei ve this report in error, please call [facility] at [phone]. FINAL REPORT Final report by Dr. Salas Emergency after-hours study CT PELVIS NONCONTRAST: 04/13/2020 2:37 AM HISTORY: 89-year-old male with acute traumatic right hip pain due to fall. FINDINGS: Agree with preliminary report by [facility]. IMPRESSION: 1) No acute fracture of right hip identified. 2) Edgardo's type dynamic compression screw fixating a nonacute left proximal femoral intertrochanter ic fracture, with nonunion. 3) Status post laminectomies and bilateral pedicle screw placement at lower lumbar spine. 4) Severe degenerative disc disease and facet osteoarthrosis at lumbosacral junction, with high-grade bilateral neural foraminal stenosis (L5-S1). Transcribed Date/Time: 04/13/2020 8:18 AM
== END 2020-04-13 04:15 ==
LOC: ERS 22:56
DX: M25.551 Pain in right hip (principal); G20 Parkinson's disease; E78.5 Hyperlipidemia, unspecified; I10 Essential (primary) hypertension; Z79.899 Other long term (current) drug therapy; Z79.82 Long term (current) use of aspirin; W19.XXXA Unspecified fall, initial encounter
CPT/HCPCS: 72192

== ENCOUNTER 2020-04-23 04:26 | Emergency (ER) | payer MEDICARE ==
[2020-04-23] MEDS ORDERED: Boostrix 0.5 ML (Tdap) VIAL ONE (05:31)
--- NOTE | 2020-04-23 08:18 | CT ---
PRELIMINARY REPORT/[facility]/EMERGENCY AFTER HOURS PROCEDURE: EXAM: CT Head and Cervical Spine Without IV contrast. CLINICAL HISTORY: FELL APPROX. 30 MINUTES AGO, UNWITNESSED PER STAFF AT [facility] UNKNOWN LOC. PATIENT AOX3. FELL FORWARD OUT OF WALKER CHAIR AND HIT TOP OF HEAD ON DRESSER. TECHNIQUE: Axial computed tomography images were acquired of the head and the cervical spine without intravenous contrast. Sagittal and coronal reformatted images were obtained of the cervical spine. COMPARISON: None provided. FINDINGS: BRAIN: No acute intraparenchymal hemorrhage. No mass lesion. No CT evidence for acute territorial infarct. N o midline shift or extra-axial collection. Generalized atrophy and white matter changes noted, certa inly not out of the ordinary for a patient his age. VENTRICLES No hydrocephalus. ORBITS The orbits are unremarkable. SINUSES AND MASTOIDS The paranasal sinuses and mastoid air cells are clear. SOFT TISSUES No significant facial or scalp soft tissue swelling evident. No radiopaque foreign body is seen. BONES No acute osseous pathology evident. No acute fracture is evident on images of the head or cervical spine. DISKS/DEGENERATIVE CHANGES Degenerative changes noted with disc space narrowing, some facet arthropathy, and endplate osteophyte s. No acute canal or foraminal compromise. Posterior cervical spine vertebral body alignment is within normal limits. IMPRESSION: 1. No acute intracranial findings. No acute intracranial injury evident. 2. No cervical spine fracture evident. ELECTRONICALLY SIGNED BY: Taras Whitt MD Apr 23, 2020 5:14:56 AM MIXING OPERATOR This report is intended for review by the ordering physician only, in accordance of law. If you recei ve this report in error, please call [facility] at [phone]. FINAL REPORT EMERGENT AFTER HOURS CT OF THE BRAIN WITHOUT CONTRAST: COMPARISON: 10/02/2019. FINDINGS/IMPRESSION: I agree with the findings and impression given in the preliminary report per [facility] physici an. No evidence of acute intracranial abnormality. POS: BLADIMIR
--- NOTE | 2020-04-23 08:32 | CT ---
PRELIMINARY REPORT/[facility]/EMERGENCY AFTER HOURS PROCEDURE: EXAM: CT Head and Cervical Spine Without IV contrast. CLINICAL HISTORY: FELL APPROX. 30 MINUTES AGO, UNWITNESSED PER STAFF AT [place] UNKNOWN LOC. PATIENT AOX3. FELL FORWARD OUT OF WALKER CHAIR AND HIT TOP OF HEAD ON DRESSER. TECHNIQUE: Axial computed tomography images were acquired of the head and the cervical spine without intravenous contrast. Sagittal and coronal reformatted images were obtained of the cervical spine. COMPARISON: None provided. FINDINGS: BRAIN: No acute intraparenchymal hemorrhage. No mass lesion. No CT evidence for acute territorial infarct. N o midline shift or extra-axial collection. Generalized atrophy and white matter changes noted, certa inly not out of the ordinary for a patient his age. VENTRICLES No hydrocephalus. ORBITS The orbits are unremarkable. SINUSES AND MASTOIDS The paranasal sinuses and mastoid air cells are clear. SOFT TISSUES No significant facial or scalp soft tissue swelling evident. No radiopaque foreign body is seen. BONES No acute osseous pathology evident. No acute fracture is evident on images of the head or cervical spine. DISKS/DEGENERATIVE CHANGES Degenerative changes noted with disc space narrowing, some facet arthropathy, and endplate osteophyte s. No acute canal or foraminal compromise. Posterior cervical spine vertebral body alignment is within normal limits. IMPRESSION: 1. No acute intracranial findings. No acute intracranial injury evident. 2. No cervical spine fracture evident. ELECTRONICALLY SIGNED BY: Taras Whitt MD Apr 23, 2020 5:14:56 AM HOT PLATE PRESS OPERATOR This report is intended for review by the ordering physician only, in accordance of law. If you recei ve this report in error, please call [facility] at [phone]. FINAL REPORT EMERGENT AFTER HOURS CT OF THE CERVICAL SPINE WITHOUT CONTRAST: HISTORY: Fall with head trauma and neck pain. FINDINGS: I agree with the findings and impression given in the preliminary report per [facility] physici an. There are moderate degenerative changes of the cervical spine without acute osseous abnormality. POS: EAA
== END 2020-04-23 06:05 ==
LOC: ERS 04:26
DX: S01.01XA Laceration without foreign body of scalp, initial encounter (principal); S51.011A Laceration without foreign body of right elbow, initial encounter; I10 Essential (primary) hypertension; E78.5 Hyperlipidemia, unspecified; W18.30XA Fall on same level, unspecified, initial encounter
CPT/HCPCS: 70450; 72125; 90471; 90715